=== PATIENT | female | born 1995 | race Caucasian/White ===

== ENCOUNTER → 2016-05-30 | Outpatient (CLI) | payer BC ==
[2016-05-30 18:11] LABS: ALBUMIN 3.8 GM/DL (3.2-5.2); ALBUMIN/GLOBULIN RATIO 1.31 (1.00-1.93); ALKALINE PHOSPHATASE 38 U/L (45-117); ALT/SGPT 26 U/L (12-78); ANION GAP 5 MEQ/L (8-16); AST/SGOT 13 U/L (15-37); BLOOD UREA NITROGEN 16 MG/DL (7-18); CALCIUM LEVEL 8.4 MG/DL (8.5-10.1); CARBON DIOXIDE LEVEL 27 MEQ/L (21-32); CHLORIDE LEVEL 109 MEQ/L (98-107); CREATININE FOR GFR 0.71 MG/DL (0.55-1.02); GLOMERULAR FILTRATION RATE > 60.0 (>60); GLUCOSE, FASTING 83 MG/DL (70-105); POTASSIUM SERUM 4.2 MEQ/L (3.5-5.1); SODIUM LEVEL 141 MEQ/L (136-145); TOTAL PROTEIN 6.7 GM/DL (6.4-8.2)
[2016-05-30 19:40] LABS: MEAN CORPUSCULAR HEMOGLOBIN 33.9 pg (27.0-33.0); MEAN CORPUSCULAR HGB CONC 34.1 g/dl (32.0-36.5); MEAN CORPUSCULAR VOLUME 99.4 fl (80.0-96.0); WHITE BLOOD COUNT 5.9 K/mm3 (4.0-10.0)
== END ==
LOC: M WUC 11:26
PROVIDERS: ATTEND Internal Medicine Gastroenterology
DX: R10.84 Generalized abdominal pain (principal); R19.4 Change in bowel habit

== ENCOUNTER → 2016-06-03 | Outpatient (REF) | payer BC | LOC: M LAB REF 09:47 | PROVIDERS: ATTEND Internal Medicine Gastroenterology | DX: R10.84 Generalized abdominal pain (principal); R19.4 Change in bowel habit ==

== ENCOUNTER → 2016-07-05 | Outpatient (CLI) | payer OTHER ==
--- NOTE | 2016-07-05 15:09 | REP ---
NUCLEAR GASTRIC EMPTYING SCAN: Following the oral administration of 0.985 millicuries technetium 99m sulfur colloid in two scrambled eggs in 6 ounces or water multiple images of the upper abdomen are performed in the anterior and posterior projections for 90 minutes. The gastric activity is measured and the gastric emptying time is calculated. At the end of 90 minutes, 24% of the ingested activity has emptied from the stomach. This yields a t-1/2 of 209 minutes. A normal t-1/2 is 90 minutes. Therefore, there is delayed gastric emptying. IMPRESSION: Delayed gastric emptying. Signed by Rick Appiah MD 07/05/2016 05:27 P
== END ==
LOC: M RAD 09:32
PROVIDERS: ATTEND Internal Medicine Gastroenterology
DX: K31.84 Gastroparesis (principal); R10.84 Generalized abdominal pain; R11.0 Nausea

== ENCOUNTER 2017-02-23 00:55 | Inpatient (IN) | payer OTHER ==
[~2017-02-23] VITALS: Ht 165.1 cm; Wt 64.5 kg
[2017-02-23] MEDS ORDERED: BUSP15TA47 PO (01:35)
[2017-02-23] MEDS ORDERED: HUMI40KI IM (01:35)
[2017-02-23] MEDS ORDERED: NAPR500T3 PO (01:35)
[2017-02-23] MEDS ORDERED: CETI10TA PO (01:35)
[2017-02-23] MEDS ORDERED: METO5TAB2 PO (01:35)
[2017-02-23] MEDS ORDERED: NUVAMIS2 PV (01:35)
[2017-02-23 02:07] LABS: MEAN CORPUSCULAR HEMOGLOBIN 32.7 pg (27.0-33.0); MEAN CORPUSCULAR HGB CONC 33.2 g/dl (32.0-36.5); MEAN CORPUSCULAR VOLUME 98.5 fl (80.0-96.0); PLATELET COUNT, AUTOMATED 171 10^3/uL (150-450); RED CELL DISTRIBUTION WIDTH 11.6 % (11.5-14.5); WHITE BLOOD COUNT 5.9 10^3/uL (4.0-10.0)
[2017-02-23 02:22] LABS: CONTROL LINE HCG INT CTR LINE PRESENT
[2017-02-23 02:28] LABS: METHADONE URINE NEGATIVE (NEGATIVE)
[2017-02-23 02:40] LABS: ALBUMIN 3.9 GM/DL (3.2-5.2); ALBUMIN/GLOBULIN RATIO 1.03 (1.00-1.93); ALKALINE PHOSPHATASE 48 U/L (45-117); ALT/SGPT 23 U/L (12-78); ANION GAP 7 MEQ/L (8-16); AST/SGOT 18 U/L (7-37); BILIRUBIN,DIRECT 0.1 MG/DL (0.0-0.2); BILIRUBIN,TOTAL 0.3 MG/DL (0.2-1.0); BLOOD UREA NITROGEN 12 MG/DL (7-18); CALCIUM LEVEL 8.1 MG/DL (8.5-10.1); CARBON DIOXIDE LEVEL 29 MEQ/L (21-32); CHLORIDE LEVEL 109 MEQ/L (98-107); CREATININE FOR GFR 0.76 MG/DL (0.55-1.02); GLOMERULAR FILTRATION RATE > 60.0 (>60); GLUCOSE, FASTING 101 MG/DL (70-105); POTASSIUM SERUM 3.8 MEQ/L (3.5-5.1); SODIUM LEVEL 145 MEQ/L (136-145); TOTAL PROTEIN 7.7 GM/DL (6.4-8.2)
[2017-02-23] MEDS ORDERED: LORazepam 0.5 MG TAB PO ONE (03:30)
[2017-02-23] MEDS ORDERED: METAMUCIL (PSYLLIUM) PACKET PO SCH (09:00)
[2017-02-23] MEDS ORDERED: MOM 30ML SUSPENSION UDC PO PRN (10:00)
[2017-02-23] MEDS ORDERED: MAALOX 30 ML SUSP *UDC PO PRN (10:00)
[2017-02-23] MEDS ORDERED: PROB1TAB PO (10:45)
[2017-02-23] MEDS ORDERED: MIRA33504 PO (10:45)
[2017-02-23] MEDS ORDERED: FIBE625T22 PO (10:45)
[2017-02-23] MEDS ORDERED: RANI1TAB6 PO (10:45)
[2017-02-23] MEDS ORDERED: MEDICAL MARIJUANA (10:47)
[2017-02-23 11:21] VITALS: BP 149/85
[2017-02-23] MEDS: NICOTINE 21MG/24HR 1 EA TRANSDERMAL TD SCH (12:49)
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
[2017-02-23] MEDS: FAMOTIDINE 20 MG TAB PO SCH (16:24)
[2017-02-23] MEDS: PARoxetine 12.5 MG **CR** TAB PO SCH (16:24)
[2017-02-23] MEDS: busPIRone 5 MG TAB PO SCH (16:25)
[2017-02-23] MEDS: MIRALAX *UNIT DOSE* 17GM PACKET PO SCH (16:25)
[2017-02-23] MEDS: NAPROXEN 250 MG TAB PO SCH ×2 (16:26→20:28)
[2017-02-23 18:00] VITALS: BP 146/85
[2017-02-23] MEDS: FIBER-CON 625 MG TAB PO SCH (19:05)
[2017-02-23] MEDS: METOCLOPRAMIDE 5 MG TAB PO SCH (20:28)
[2017-02-23] MEDS ORDERED: busPIRone 5 MG TAB PO SCH (21:00)
[2017-02-23] MEDS: traZODone 50 MG TAB PO PRN (22:09)
[2017-02-23] MEDS: ACETAMINOPHEN TAB 650MG DOSE (2X325MG) PO PRN (22:10)
[2017-02-24 07:17] VITALS: BP 125/72
[2017-02-24] MEDS: FIBER-CON 625 MG TAB PO SCH (08:50)
[2017-02-24] MEDS: METOCLOPRAMIDE 5 MG TAB PO SCH ×2 (08:50→20:30)
[2017-02-24] MEDS: FAMOTIDINE 20 MG TAB PO SCH (08:50)
[2017-02-24] MEDS: NAPROXEN 250 MG TAB PO SCH ×2 (08:51→20:30)
[2017-02-24] MEDS: PARoxetine 12.5 MG **CR** TAB PO SCH (08:51)
[2017-02-24] MEDS: busPIRone 5 MG TAB PO SCH (08:51)
[2017-02-24] MEDS: MIRALAX *UNIT DOSE* 17GM PACKET PO SCH (08:51)
[2017-02-24] MEDS: NICOTINE 21MG/24HR 1 EA TRANSDERMAL TD SCH (08:52)
[2017-02-24] MEDS: PROPRANOLOL 10 MG TAB PO PRN ×2 (14:32→21:16)
--- NOTE | 2017-02-24 14:44 | MHIPNPDOC ---
[facility] Progress Note Progress Note DATE OF SERVICE: 02/24/17 HISTORY: CHIEF COMPLAINT: " I drank too much last night and I made a stupid mistake, I said the wrong thing. I said I wanted to Kill myself" HISTORY OF PRESENT ILLNESS: Patient is a 21-year-old female, who says she made a mistake by drinking too much and saying she wanted to kill herself. She said she went to her friend's house and drank way too much. She was only to have a few drinks and she doesn't remember leaving her friend's house, she remembers opening her car, but she doesn't remember anything else. She re remembers calling her boyfriend and she was already in the vehicle. she says she called to tell him she needed a ride because she knew she was drunk. He never showed up until the police called him. She says she feels disappointed about herself because she has put other people's life's in danger, and her own. She says alcohol addiction runs in her family and she doesn't want to do this because she wouldn't like to become an addict. She says she doesn't use cocaine but it showed up in her urine toxicology and she worries. about that. she says there were a lot of people at her friend's house. She says she knows this is her fault but she doesn't understand how come her friend left her go to the car being so drunk. She admits it is her fault, she's a grown up woman, but still she feels disappointed. She told her boyfriend she was going to kill him and she said she was going to kill herself. VITAL SIGNS: See below. NEW TEST RESULTS: See below CURRENT MEDICATIONS: See below. MENTAL STATUS EXAMINATION: Patient is a 21-year old female, who is alert, cooperative, nervous, dressed in hospital clothes, pleasant, good hygiene and grooming. Speech: Is Spontaneous and fluent, a little rapid. Language skills are Good Thought processes including: Intact. Thought content: Focused on being discharged soon. Abstract reasoning, and computation: Not assessed at this time Description of associations: Good. Description of abnormal or psychotic thoughts: She is not suicidal or homicidal and she denies HI and SI. She is not psychotic and she denies A/V hallucinations and thought delusions. she admits feeling anxious but less than yesterday. Judgment: Improving. Insight: Improving. Orientation: Oriented x 3. Recent and remote memory: Intact. Attention span and concentration: Good. Language: Normal. Fund of knowledge: Adequate. Mood: Anxious. Affect: Congruent with mood. DIAGNOSES: 1. Generalized anxiety disorder. 2. Substance use disorder. ASSESSMENT: Patient was calmer when she started talking to me but she became more and more anxious as we spoke about her discharge. I told her she would be leaving on Monday, we don't do discharges over the weekend. I explained we needed to schedule her appointments, make a safety plan for her. she says she feels a little bit better today, she feels less nervous. She has being receiving support from her family and her boyfriend, she has understood she has to be thankful because she didn't kill anybody and she didn't get hurt, but she understands she needs substance abuse treatment and psychiatric treatment. She says she hasn't taken her propranolol bur she feels a little bit nervous now, her hands are shaky and her heart is beginning to race, she will go and ask for it at the medication room. MANAGEMENT PLAN: I have increased her Paxil CR to 25 mgs. PO QD. TIME SPENT: 20 minutes. Vital Signs Vital Signs Date Time Temp Pulse Resp B/P (MAP) Pulse Ox O2 Delivery O2 Flow Rate FiO2 02/24/17 07:17 98.8 77 16 125/72 (89) 02/23/17 10:24 96 Room Air Current Medications Current Medications Acetaminophen (Tylenol Tab) 650 mg Q6HP PRN PO HEADACHE or DISCOMFORT Last administered on 02/23/17t 22:10; Start 02/23/17 at 10:00; Stop 03/25/17 at 09: 59 Al Hydrox/Mg Hydrox/Simethicone (Mylanta) 30 ml Q4HP PRN PO HEARTBURN/ INDIGESTION; Start 02/23/17 at 10:00; Stop 03/25/17 at 09:59 Buspirone HCl (Buspar) 15 mg BID PO ; Start 02/23/17 at 21:00; Stop 02/23/17 at 21:00; Status DC Buspirone HCl (Buspar) 15 mg DAILY PO Last administered on 02/24/17 08:51; Start 02/23/17 at 09:00; Stop 03/25/17 at 08:59 Calcium Polycarbophil (Fiber Con) 1 ea DAILY PO Last administered on 08:50; Start 02/23/17 at 09:00; Stop 03/25/17 at 08:59 Famotidine (Pepcid) 40 mg DAILY PO Last administered on 02/24/17 08:50; Start 02/23/17 at 09:00; Stop 03/25/17 at 08:59 Home Med (Med Rec Complete!) ASDIRECTED XX ; Start 02/23/17 at 11:00; Stop at 11:00; Status DC Magnesium Hydroxide (Milk Of Magnesia) 30 ml DAILYPRN PRN PO CONSTIPATION; Start 02/23/17 at 10:00; Stop 03/25/17 at 09:59 Metoclopramide HCl (Reglan) 5 mg BID PO Last administered on 02/24/17 08:50; Start 02/23/17 at 21:00; Stop 03/25/17 at 20:59 Naproxen (Naprosyn) 250 mg BID PO Last administered on 02/24/17 08:51; Start 02/23/17 at 09:00; Stop 03/25/17 at 08:59 Nicotine (Nicoderm Cq 21mg) 1 patch DAILY TD Last administered on 02/24/17 08 :52; Start 02/23/17 at 09:00; Stop 03/25/17 at 08:59 Paroxetine HCl (PAXil CR) 12.5 mg DAILY PO Last administered on 02/24/17 08: 51; Start 02/23/17 at 09:00; Stop 03/25/17 at 08:59 Polyethylene Glycol (Miralax) 1 pkt DAILY PO Last administered on 02/24/17 08 :51; Start 02/23/17 at 09:00; Stop 03/25/17 at 08:59 Propranolol HCl (Inderal) 10 mg TID PRN PO ANXIETY/AGITATION; Start 02/23/17 at 15:30; Stop 03/25/17 at 15:29 Psyllium Hydrophilic Mucilloid (Metamucil) 1 pkt DAILY PO ; Start 02/23/17 at 09:00; Stop 02/23/17 at 15:20; Status DC Trazodone HCl (Desyrel) 50 mg QHSP PRN PO INSOMNIA Last administered on t 22:09; Start 02/23/17 at 10:00; Stop 03/25/17 at 09:59 Allergies Coded Allergies: No Known Allergies (Verified , 09/16/02) LARS GARAY MD Feb 24, 2017 14:44
[2017-02-24 18:00] VITALS: BP 130/91
[2017-02-24] MEDS: traZODone 50 MG TAB PO PRN (23:16)
[2017-02-25 06:43] VITALS: BP 109/63
[2017-02-25] MEDS: MIRALAX *UNIT DOSE* 17GM PACKET PO SCH (09:16)
[2017-02-25] MEDS: METOCLOPRAMIDE 5 MG TAB PO SCH ×2 (09:16→20:36)
[2017-02-25] MEDS: FIBER-CON 625 MG TAB PO SCH (09:16)
[2017-02-25] MEDS: busPIRone 5 MG TAB PO SCH (09:17)
[2017-02-25] MEDS: FAMOTIDINE 20 MG TAB PO SCH (09:17)
[2017-02-25] MEDS: PARoxetine 25 MG CR TAB (PAXIL CR) PO SCH (09:17)
[2017-02-25] MEDS: NAPROXEN 250 MG TAB PO SCH ×2 (09:17→20:35)
[2017-02-25] MEDS: NICOTINE 21MG/24HR 1 EA TRANSDERMAL TD SCH (09:17)
--- NOTE | 2017-02-25 15:22 | MHIPNPDOC ---
[facility] Progress Note Progress Note DATE OF SERVICE: 02/25/17 HISTORY: Patient reports feeling anxious with poor sleep at night. Anxious because of all of the things she has to do once she is discharged. Denies depression, SI intent and plan. Patient has constipation, describes her IBS symptoms. Describes her joint pain issues (rheumatoid and osteoarthritis). VITAL SIGNS: See below. NEW TEST RESULTS: NA CURRENT MEDICATIONS: See below. Appearance: Behavior: polite, cooperative, related Speech: normal volume, anxious tone, slightly rapid rate Thought processes including: linear Thought content: appropriate to conversation Judgment: fair Insight: fair Orientation: Oriented x 3. Mood: Anxious. Affect: Congruent with mood. DIAGNOSES: 1. Generalized anxiety disorder. 2. Substance use disorder. ASSESSMENT: Patient does not have SI. Remains anxious. Motivated to seek outpatient care. MANAGEMENT PLAN: - Continue Paxil CR 25 mg daily - Continue buspar 15 mg daily for anxiety - Continue propranolol 10 mg TID PRN for anxiety - Increased trazodone to 100 mg qhs for sleep - Discussed with patient about the possibility of starting benzos (klonopin) outpatient, emphasized that the decision will be between her and her outpatient psychiatrist - Continue medications for her GI issues. TIME SPENT: 20 minutes. Vital Signs Vital Signs Date Time Temp Pulse Resp B/P (MAP) Pulse Ox O2 Delivery O2 Flow Rate FiO2 02/25/17 06:43 97.7 83 12 109/63 (78) 02/23/17 10:24 96 Room Air Current Medications Current Medications Acetaminophen (Tylenol Tab) 650 mg Q6HP PRN PO HEADACHE or DISCOMFORT Last administered on 02/23/17 22:10; Start 02/23/17 at 10:00; Stop 03/25/17 at 09: 59 Al Hydrox/Mg Hydrox/Simethicone (Mylanta) 30 ml Q4HP PRN PO HEARTBURN/ INDIGESTION; Start 02/23/17 at 10:00; Stop 03/25/17 at 09:59 Buspirone HCl (Buspar) 15 mg BID PO ; Start 02/23/17 at 21:00; Stop 02/23/17 at 21:00; Status DC Buspirone HCl (Buspar) 15 mg DAILY PO Last administered on 02/25/17 09:17; Start 02/23/17 at 09:00; Stop 03/25/17 at 08:59 Calcium Polycarbophil (Fiber Con) 1 ea DAILY PO Last administered on 09:16; Start 02/23/17 at 09:00; Stop 03/25/17 at 08:59 Famotidine (Pepcid) 40 mg DAILY PO Last administered on 02/25/17 09:17; Start 02/23/17 at 09:00; Stop 03/25/17 at 08:59 Home Med (Med Rec Complete!) ASDIRECTED XX ; Start 02/23/17 at 11:00; Stop at 11:00; Status DC Magnesium Hydroxide (Milk Of Magnesia) 30 ml DAILYPRN PRN PO CONSTIPATION Last administered on 02/25/17 12:12; Start 02/23/17 at 10:00; Stop 03/25/17 at 09: 59 Metoclopramide HCl (Reglan) 5 mg BID PO Last administered on 02/25/17 09:16; Start 02/23/17 at 21:00; Stop 03/25/17 at 20:59 Naproxen (Naprosyn) 250 mg BID PO Last administered on 02/25/17 09:17; Start 02/23/17 at 09:00; Stop 03/25/17 at 08:59 Nicotine (Nicoderm Cq 21mg) 1 patch DAILY TD Last administered on 02/25/17 09 :17; Start 02/23/17 at 09:00; Stop 03/25/17 at 08:59 Paroxetine HCl (PAXil CR) 12.5 mg DAILY PO Last administered on 02/24/17 08: 51; Start 02/23/17 at 09:00; Stop 02/24/17 at 14:27; Status DC Paroxetine HCl (PAXil CR) 25 mg DAILY PO Last administered on 02/25/17 09:17 ; Start 02/25/17 at 09:00; Stop 03/27/17 at 08:59 Polyethylene Glycol (Miralax) 1 pkt DAILY PO Last administered on 02/25/17 09 :16; Start 02/23/17 at 09:00; Stop 03/25/17 at 08:59 Propranolol HCl (Inderal) 10 mg TID PRN PO ANXIETY/AGITATION Last administered on 02/24/17 21:16; Start 02/23/17 at 15:30; Stop 03/25/17 at 15:29 Psyllium Hydrophilic Mucilloid (Metamucil) 1 pkt DAILY PO ; Start 02/23/17 at 09:00; Stop 02/23/17 at 15:20; Status DC Trazodone HCl (Desyrel) 50 mg QHSP PRN PO INSOMNIA Last administered on t 23:16; Start 02/23/17 at 10:00; Stop 03/25/17 at 09:59 Allergies Coded Allergies: No Known Allergies (Verified , 09/16/02) HARRIET FLORES MD Feb 25, 2017 15:22
[2017-02-25 18:47] VITALS: BP 110/64
[2017-02-25] MEDS: PROPRANOLOL 10 MG TAB PO PRN (19:09)
[2017-02-26] MEDS: traZODone 50 MG TAB PO PRN ×2 (00:01→22:13)
[2017-02-26] MEDS: ACETAMINOPHEN TAB 650MG DOSE (2X325MG) PO PRN ×2 (00:02→08:47)
[2017-02-26 06:44] VITALS: BP 100/56
[2017-02-26] MEDS: METOCLOPRAMIDE 5 MG TAB PO SCH ×2 (08:44→21:35)
[2017-02-26] MEDS: FIBER-CON 625 MG TAB PO SCH (08:44)
[2017-02-26] MEDS: MIRALAX *UNIT DOSE* 17GM PACKET PO SCH (08:44)
[2017-02-26] MEDS: PARoxetine 25 MG CR TAB (PAXIL CR) PO SCH (08:45)
[2017-02-26] MEDS: FAMOTIDINE 20 MG TAB PO SCH (08:45)
[2017-02-26] MEDS: busPIRone 5 MG TAB PO SCH (08:45)
[2017-02-26] MEDS: NICOTINE 21MG/24HR 1 EA TRANSDERMAL TD SCH (08:46)
[2017-02-26] MEDS: NAPROXEN 250 MG TAB PO SCH ×2 (08:47→21:36)
[2017-02-26 13:24] VITALS: BP 140/88
[2017-02-26] MEDS: PROPRANOLOL 10 MG TAB PO PRN (13:24)
[2017-02-26 18:20] VITALS: BP 129/81
--- NOTE | 2017-02-26 22:11 | MHIPN ---
DATE: 02/26/2017 VITAL SIGNS: Temperature 96.9, pulse 60, respirations 12, blood pressure 100/56. CURRENT MEDICATIONS: - Paxil CR 25 mg every morning - trazodone 100 mg at bedtime as needed - BuSpar 15 mg daily PSYCHIATRIC HISTORY: The patient has a history of generalized anxiety disorder (JUNE) and substance use disorder. She is being treated by Dr. Otoole. She is currently on Paxil, BuSpar, and trazodone. Dr. Otoole is planning on weaning her off the BuSpar apparently. She is looking forward to discharge, possibly tomorrow. She feels excited about the future. She is future oriented. She plans on staying sober and avoiding alcohol. She is willing to go to outpatient treatment. Her appetite is good. She sleeps well at night. She has no other complaints. MENTAL STATUS EXAMINATION: The patient is alert, oriented and cooperative. Speech is somewhat rapid but otherwise is appropriate. She has good eye contact. No signs of psychosis. Insight and judgment are fair. No current signs of dangerousness. The patient is not psychotic. Grooming and hygiene are quite good. DIAGNOSES: 1. Generalized anxiety disorder (JUNE). 2. Substance use disorder. PLAN: Continue current psychotropics.
[2017-02-27 06:55] VITALS: BP 107/57
[2017-02-27] MEDS ORDERED: PARoxetine 20 MG TAB PO ONE (08:30)
[2017-02-27] MEDS: FAMOTIDINE 20 MG TAB PO SCH (08:35)
[2017-02-27] MEDS: FIBER-CON 625 MG TAB PO SCH (08:35)
[2017-02-27] MEDS: METOCLOPRAMIDE 5 MG TAB PO SCH (08:35)
[2017-02-27] MEDS: MIRALAX *UNIT DOSE* 17GM PACKET PO SCH (08:35)
[2017-02-27] MEDS: busPIRone 5 MG TAB PO SCH (08:36)
[2017-02-27] MEDS: NAPROXEN 250 MG TAB PO SCH (08:36)
[2017-02-27] MEDS: NICOTINE 21MG/24HR 1 EA TRANSDERMAL TD SCH (08:36)
[2017-02-27] MEDS ORDERED: PARO20TA3 PO (10:38)
--- NOTE | 2017-02-27 16:43 | HPE ---
DATE OF ADMISSION: 02/23/2017 HISTORY OF PRESENT ILLNESS: Please refer to psychiatric history and evaluation for further details on this admission. This examination and history is intended for medical issues, which may need treatment, followup or consultation on this 21-year-old female. ALLERGIES: No known allergies. PRIMARY CARE PROVIDER: She goes to the [facility]. SOCIAL HISTORY: She is single. She lives with her significant other of 6 years. EtOH two times a month. Smokes one pack of cigarettes per day. Recreational drug use is none. PAST MEDICAL HISTORY: Rheumatoid arthritis, osteoarthritis, ankylosing spondylitis, she follows with [facility], gastric emptying problem. PAST SURGICAL HISTORY: Reimplantation of left ureter at age 4. HOME MEDICATIONS: - medical marijuana - buspirone 15 mg by mouth twice a day - calcium - polycarbophil 625 mg by mouth daily - Reglan 5 mg by mouth twice a day - Naproxen 500 mg by mouth twice a day - MiraLAX 17 grams by mouth daily - ranitidine 150 mg by mouth twice a day - Humira 40 mg intramuscularly as directed - NuvaRing 0.12/0.015 mg per 24 hours as directed - probiotic one by mouth daily LABORATORY STUDIES: WBC was 5.9, hemoglobin 12.9, hematocrit 38.8, platelets 171. Sodium 145, potassium 3.8, chloride 109, CO2 of 29, BUN 12, creatinine 0.76. Urine was positive for cocaine and cannabinoids. EtOH was 0.224 despite the fact that the patient denied using alcohol or cocaine. REVIEW OF SYSTEMS: Ten systems review was done and other than her arthritic pain she had no complaints. PHYSICAL EXAMINATION: GENERAL: 21-year-old cooperative female in no acute distress. Height 65 inches, weight 64.54 kg, Body Mass Index (BMI) 23.7, blood pressure 100/56, pulse 60, respirations 16, temperature 96.9. The patient is alert and oriented times three. HEENT: Pupils are equal and reactive to light. Extraocular muscles intact. Sclerae clear. Conjunctivae normal. No facial asymmetry. Pharynx, gums and tongue pink and moist. Tongue is midline. NECK: Supple without lymphadenopathy, thyromegaly or goiter. CHEST: Clear to auscultation without wheeze or retraction. HEART: Regular. ABDOMEN: Benign. Bowel sounds positive. GENITOURINARY/RECTAL: Not done. EXTREMITIES: Equal strength. Full range of motion. No cyanosis, clubbing or edema. Peripheral pulses equal and palpable bilaterally. SKIN: Warm and dry. IMPRESSION/PLAN: 1. Psychiatric plan per psychiatry. 2. Rheumatoid arthritis, osteoarthritis, ankylosing spondylitis. Continue to followup with [facility]. 3. Polysubstance abuse. Monitor for withdrawal. 4. No other acute medical issues.
[2017-02-28] MEDS ORDERED: PARoxetine 20 MG TAB PO SCH (09:00)
--- NOTE | 2017-02-28 12:56 | MHDS ---
DATE OF ADMISSION: 02/23/2017 DATE OF DISCHARGE: 02/27/2017 VITAL SIGNS: Temperature 99.6. Pulse 78. Respirations 16. Blood pressure 107/57. LABS: CBC and differential within normal limits except for low RBC at 3.94, MCV was elevated at 98.5. Chem survey was normal except for chloride 109 and calcium low at 8.1. Toxicology showed positive urine for cocaine metabolites and cannabinoids. Ethyl alcohol level was elevated at 0.224. DISCHARGE DIAGNOSES: 1. Generalized anxiety disorder. 2. Depressive disorder unspecified. 3. Alcohol use disorder. 4. Cannabis use disorder. 5. Cocaine use disorder. DISCHARGE MEDICATIONS: - Paxil 20 mg every morning - trazodone 100 mg at bedtime as needed - BuSpar discontinued CHIEF COMPLAINT: Patient was seen at the time of admission by Dr. Otoole. Her chief complaint was that she drank too much and became suicidal. HISTORY OF PRESENT ILLNESS: This is a 21-year-old female who drank to excess, becoming intoxicated and voicing suicidal ideation. The patient had a blackout. She consumed cannabis and cocaine. She has no recollection. She was picked up on an aggravated DUI and has legal charges pending. The patient has a history of anxiety and a diagnosis of generalized anxiety disorder per Dr. Otoole. PROGRESS ON THE UNIT: The patient was placed on Paxil by Dr. Otoole with good effect. She was placed on Paxil CR. She tolerated it well. She denied any side effects. Mood improved markedly. Anxiety improved. She did not show any signs of alcohol withdrawal. The patient was agreeable for outpatient mental health services and chemical dependency services. 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 She plans on cutting back her school schedule for next semester. Her boyfriend helped her get a legal veterans service representative to help her with her DUI charge. She has a court date today after discharge. The patient appeared optimistic about the future and was future oriented. She showed no signs of dangerousness. Prior to discharge, she was active on the unit and was behaviorally appropriate. MENTAL STATUS EXAMINATION: At the time of discharge, mood and affect appeared quite good. Anxiety was minimal. She was not suicidal and not homicidal. No signs of psychosis. Grooming and hygiene were good. No signs of organicity. ASSESSMENT: Patient appears to have reached maximal hospital benefit. PLAN: Discharge to the community.
== END 2017-02-27 12:25 | disposition home or self-care (01) | DRG 756 ==
LOC: M ED 00:55 → M ED INP 09:47 → M PSY 10:53
PROVIDERS: ADMIT Psychiatry & Neurology Psychiatry; ATTEND Psychiatry & Neurology Psychiatry
DX: F41.1 Generalized anxiety disorder (principal); F32.9 Major depressive disorder, single episode, unspecified; F10.10 Alcohol abuse, uncomplicated; F12.90 Cannabis use, unspecified, uncomplicated; F14.90 Cocaine use, unspecified, uncomplicated; F17.210 Nicotine dependence, cigarettes, uncomplicated; M06.9 Rheumatoid arthritis, unspecified; Z79.899 Other long term (current) drug therapy

== ENCOUNTER → 2018-01-26 | Outpatient (REF) | payer OTHER ==
[2018-01-26 17:27] LABS: CHLAMYDIA DNA AMPLIFICATION NEGATIVE (NEGATIVE); GC DNA AMPLIFICATION NEGATIVE (NEGATIVE)
== END ==
LOC: M SFHCWAGY 11:57
DX: Z12.4 Encounter for screening for malignant neoplasm of cervix (principal)

== ENCOUNTER → 2018-04-13 | Outpatient (CLI) | payer BC ==
[~2018-04-13] MED LIST: BUSP15TA47 PO; CETI10TA PO; FIBE625T22 PO; HUMI40KI IM; MEDICAL MARIJUANA; METO5TAB2 PO; MIRA33504 PO; NAPR-885 PO; NUVAMIS2 PV; PARO20TA3 PO; PROB1TAB PO; RANI1TAB6 PO
[2018-04-13 15:41] LABS: ALT/SGPT 64 U/L (12-78); C REACTIVE PROTEIN QUANTITATIV < 0.30 MG/DL (0.00-0.30); CREATININE FOR GFR 0.81 MG/DL (0.55-1.30); GLOMERULAR FILTRATION RATE > 60.0 (>60)
[2018-04-13 15:54] LABS: BASO % 0.5 % (0.0-1.0); EOS # 0.2 10^3/uL (0.0-0.50); EOS % 2.5 % (0.0-3.0); HEMATOCRIT 40.8 % (36.0-47.0); HEMOGLOBIN 13.7 g/dl (12.0-15.5); LYMPH % 38.3 % (24.0-44.0); MEAN CORPUSCULAR HEMOGLOBIN 33.1 pg (27.0-33.0); MEAN CORPUSCULAR HGB CONC 33.6 g/dl (32.0-36.5); MEAN CORPUSCULAR VOLUME 98.6 fl (80.0-96.0); MONO # 0.5 10^3/uL (0.0-0.8); MONO % 6.8 % (0.0-5.0); NEUTROPHILS % 51.6 % (36.0-66.0); PLATELET COUNT, AUTOMATED 214 10^3/uL (150-450); RED BLOOD COUNT 4.14 10^6/uL (4.00-5.40); WHITE BLOOD COUNT 7.8 10^3/uL (4.0-10.0)
[2018-04-13 16:26] LABS: ERYTHROCYTE SEDIMENTATION RATE 6 mm/hr (0-20)
== END ==
LOC: M WUC 11:43
PROVIDERS: ATTEND Nurse Practitioner
DX: M45.0 Ankylosing spondylitis of multiple sites in spine (principal); Z79.899 Other long term (current) drug therapy

== ENCOUNTER → 2018-04-26 | Outpatient (REF) | payer BC | LOC: M SFHCWAGY 12:06 | PROVIDERS: ATTEND Nurse Practitioner Women's Health | DX: N89.8 Other specified noninflammatory disorders of vagina (principal) ==

== ENCOUNTER 2018-08-30 14:23 | Emergency (ER) | payer BC ==
[~2018-08-30] VITALS: Ht 165.1 cm; Wt 77.4 kg
[2018-08-30] MEDS ORDERED: AZUR1TAB (14:33)
[2018-08-30] MEDS ORDERED: COSE1INJ3 (14:33)
[2018-08-30] MEDS ORDERED: GLYC1TAB18 (14:33)
[2018-08-30] MEDS ORDERED: KETOROLAC 30 MG/ML VIAL (J1885) IM ONE (15:15)
[2018-08-30] MEDS ORDERED: KETO10TAB PO (15:44)
[2018-08-30 15:59] VITALS: BP 156/97
== END 2018-08-30 15:58 | disposition home or self-care (01) ==
LOC: M ED 14:23
DX: S29.011A Strain of muscle and tendon of front wall of thorax, initial encounter (principal); S29.012A Strain of muscle and tendon of back wall of thorax, initial encounter; S46.911A Strain of unspecified muscle, fascia and tendon at shoulder and upper arm level, right arm, initial encounter; X50.3XXA Overexertion from repetitive movements, initial encounter; Y92.099 Unspecified place in other non-institutional residence as the place of occurrence of the external cause; Y93.89 Activity, other specified; Y99.9 Unspecified external cause status; M06.9 Rheumatoid arthritis, unspecified; M45.9 Ankylosing spondylitis of unspecified sites in spine; Z87.891 Personal history of nicotine dependence; Z79.899 Other long term (current) drug therapy
CPT/HCPCS: 96372; 99283; J1885

== ENCOUNTER → 2018-10-30 | Outpatient (REF) | payer BC ==
[~2018-10-30] MED LIST changes: +AZUR1TAB; +COSE1INJ3; +GLYC1TAB18; +KETO10TAB PO
[2018-10-30 21:45] LABS: APPEARANCE, URINE CLOUDY (CLEAR); BACTERIA, URINE AUTO 1+ (NEGATIVE); BILIRUBIN, URINE AUTO NEGATIVE (NEGATIVE); BLOOD, URINE BLOOD 2+ (NEGATIVE); COLOR, URINE YELLOW (YELLOW); GLUCOSE, URINE (UA) AUTO NEGATIVE (NEGATIVE); KETONE, URINE AUTO TRACE mg/dL (NEGATIVE); LEUKOCYTE ESTERASE, URINE AUTO 1+ (NEGATIVE); MUCUS, URINE SMALL (NEGATIVE); NITRITE, URINE AUTO POSITIVE (NEGATIVE); PROTEIN, URINE AUTO 2+ mg/dL (NEGATIVE); RBC, URINE AUTO 56 /HPF (0-3); SPECIFIC GRAVITY URINE AUTO 1.025 (1.002-1.035); SQUAMOUS EPITHELIAL CELL UR AU 5 /HPF (0-6); TRANSITIONAL EPITHELIAL AUTO 5 /HPF; UROBILINOGEN, URINE AUTO 0.2 mg/dL (0.0-2.0); WBC, URINE AUTO TNTC /HPF (0-3)
== END ==
LOC: M LAB REF 14:35
PROVIDERS: ATTEND Physician Assistant Medical
DX: N39.0 Urinary tract infection, site not specified (principal)

== ENCOUNTER → 2018-11-19 | Outpatient (REF) | payer BC ==
[~2018-11-19] MED LIST changes: +RANI-356 PO; -RANI1TAB6 PO
[2018-11-19 14:06] LABS: APPEARANCE, URINE CLOUDY (CLEAR); BACTERIA, URINE AUTO 1+ (NEGATIVE); BILIRUBIN, URINE AUTO NEGATIVE (NEGATIVE); BLOOD, URINE BLOOD 3+ (NEGATIVE); COLOR, URINE YELLOW (YELLOW); GLUCOSE, URINE (UA) AUTO NEGATIVE (NEGATIVE); KETONE, URINE AUTO NEGATIVE (NEGATIVE); LEUKOCYTE ESTERASE, URINE AUTO 2+ (NEGATIVE); MUCUS, URINE SMALL (NEGATIVE); NITRITE, URINE AUTO NEGATIVE (NEGATIVE); PROTEIN, URINE AUTO 2+ mg/dL (NEGATIVE); RBC, URINE AUTO TNTC /HPF (0-3); SPECIFIC GRAVITY URINE AUTO 1.019 (1.002-1.035); SQUAMOUS EPITHELIAL CELL UR AU 17 /HPF (0-6); TRANSITIONAL EPITHELIAL AUTO 3 /HPF; UROBILINOGEN, URINE AUTO 0.2 mg/dL (0.0-2.0); WBC, URINE AUTO TNTC /HPF (0-3)
== END ==
LOC: M LAB REF 12:27
PROVIDERS: ATTEND Physician Assistant Medical
DX: N39.0 Urinary tract infection, site not specified (principal)

== ENCOUNTER → 2019-01-26 | Outpatient (REF) | payer BC ==
[2019-01-26 13:18] LABS: AMORPHOUS SEDIMENT SMALL (NEGATIVE); APPEARANCE, URINE CLOUDY (CLEAR); BACTERIA, URINE AUTO 2+ (NEGATIVE); BILIRUBIN, URINE AUTO NEGATIVE (NEGATIVE); BLOOD, URINE BLOOD 1+ (NEGATIVE); COLOR, URINE YELLOW (YELLOW); GLUCOSE, URINE (UA) AUTO NEGATIVE (NEGATIVE); KETONE, URINE AUTO NEGATIVE (NEGATIVE); LEUKOCYTE ESTERASE, URINE AUTO 2+ (NEGATIVE); MUCUS, URINE SMALL (NEGATIVE); NITRITE, URINE AUTO NEGATIVE (NEGATIVE); PROTEIN, URINE AUTO 2+ mg/dL (NEGATIVE); RBC, URINE AUTO 21 /HPF (0-3); SPECIFIC GRAVITY URINE AUTO 1.033 (1.002-1.035); SQUAMOUS EPITHELIAL CELL UR AU 10 /HPF (0-6); UROBILINOGEN, URINE AUTO 0.2 mg/dL (0.0-2.0); WBC, URINE AUTO 167 /HPF (0-3)
== END ==
LOC: M LAB REF 12:52
PROVIDERS: ATTEND Nurse Practitioner Family
DX: N39.0 Urinary tract infection, site not specified (principal)

== ENCOUNTER → 2019-02-05 | Outpatient (CLI) | payer BC ==
--- NOTE | 2019-02-05 14:14 | REP ---
ULTRASOUND RIGHT BREAST: Real-time sonographic evaluation of the right breast performed for a palpable lump right breast between 8-o'clock position and 10-o'clock position. This has been present for approximately 2 weeks. Real-time sonographic evaluation of lateral right breast demonstrates dense fibroglandular tissue. No discrete cystic or solid mass is seen. IMPRESSION: ACR 2 benign. Dense breast parenchymal between 8-o'clock position and 10-o'clock position right breast at the site of the reported palpable abnormality. No sonographic evidence of cystic or solid mass. A negative ultrasound should not deter biopsy if a clinically suspicious palpable mass is present. Clinical correlation and followup is recommended. Electronically Signed by Rick Appiah MD 02/05/2019 02:34 P
== END ==
LOC: M RAD 12:38
PROVIDERS: ATTEND Nurse Practitioner Women's Health
DX: N63.10 Unspecified lump in the right breast, unspecified quadrant (principal)

== ENCOUNTER → 2019-05-21 | Outpatient (REF) | payer BC ==
[~2019-05-21] MED LIST changes: -RANI-356 PO; +RANI-397 PO
== END ==
LOC: M LAB REF 12:27
PROVIDERS: ATTEND Physician Assistant
DX: Z20.2 Contact with and (suspected) exposure to infections with a predominantly sexual mode of transmission (principal)

== ENCOUNTER → 2020-01-08 | Outpatient (REF) | payer BC ==
[~2020-01-08] MED LIST changes: +BACT800T5 PO; +IBUP-1114 PO
[2020-01-08 22:03] LABS: BASO % 0.3 % (0.0-1.0); EOS # 0.3 10^3/uL (0.0-0.5); EOS % 2.8 % (0.0-3.0); HEMATOCRIT 38.7 % (36.0-47.0); HEMOGLOBIN 12.8 g/dl (12.0-15.5); LYMPH # 1.9 10^3/uL (1.5-5.0); LYMPH % 21.6 % (24.0-44.0); MEAN CORPUSCULAR HEMOGLOBIN 31.7 pg (27.0-33.0); MEAN CORPUSCULAR HGB CONC 33.1 g/dl (32.0-36.5); MEAN CORPUSCULAR VOLUME 95.8 fl (80.0-96.0); MONO # 0.7 10^3/uL (0.0-0.8); MONO % 8.1 % (0.0-5.0); NEUTROPHILS % 66.9 % (36.0-66.0); PLATELET COUNT, AUTOMATED 235 10^3/uL (150-450); RED BLOOD COUNT 4.04 10^6/uL (4.00-5.40)
== END ==
LOC: M LAB REF 21:43
PROVIDERS: ATTEND Physician Assistant
DX: R23.3 Spontaneous ecchymoses (principal)

== ENCOUNTER 2020-01-14 15:20 | Emergency (ER) | payer BC, SELFPAY ==
[~2020-01-14] VITALS: Ht 165.1 cm; Wt 64.3 kg
[~2020-01-14 15:20] MED LIST changes: -BACT800T5 PO; -IBUP-1114 PO
[2020-01-14 15:21] VITALS: BP 129/76
[2020-01-14] MEDS ORDERED: IBUP-1114 PO (15:44)
[2020-01-14] MEDS ORDERED: BACT800T5 PO (16:12)
== END 2020-01-14 16:29 | disposition home or self-care (01) ==
LOC: M ED 15:20
DX: L02.212 Cutaneous abscess of back [any part, except buttock and flank] (principal); L02.211 Cutaneous abscess of abdominal wall; M19.90 Unspecified osteoarthritis, unspecified site; Z79.899 Other long term (current) drug therapy; F17.210 Nicotine dependence, cigarettes, uncomplicated

== ENCOUNTER → 2020-02-14 | Outpatient (REF) | payer SELFPAY ==
[~2020-02-14] MED LIST changes: +BACT800T5 PO; +IBUP-1114 PO
== END ==
LOC: M SFHCWAGY 16:48
PROVIDERS: ATTEND Nurse Practitioner Family
DX: Z11.3 Encounter for screening for infections with a predominantly sexual mode of transmission (principal)

== ENCOUNTER → 2020-06-05 | Outpatient (REF) | payer BC ==
[2020-06-05 21:13] LABS: APPEARANCE, URINE HAZY (CLEAR); BACTERIA, URINE AUTO NEGATIVE (NEGATIVE); BILIRUBIN, URINE AUTO NEGATIVE (NEGATIVE); BLOOD, URINE BLOOD NEGATIVE (NEGATIVE); COLOR, URINE YELLOW (YELLOW); GLUCOSE, URINE (UA) AUTO NEGATIVE (NEGATIVE); KETONE, URINE AUTO NEGATIVE (NEGATIVE); LEUKOCYTE ESTERASE, URINE AUTO TRACE (NEGATIVE); NITRITE, URINE AUTO NEGATIVE (NEGATIVE); PROTEIN, URINE AUTO NEGATIVE (NEGATIVE); RBC, URINE AUTO 6 /HPF (0-3); SPECIFIC GRAVITY URINE AUTO 1.021 (1.002-1.035); SQUAMOUS EPITHELIAL CELL UR AU 2 /HPF (0-6); UROBILINOGEN, URINE AUTO 0.2 mg/dL (0.0-2.0); WBC, URINE AUTO 25 /HPF (0-3)
== END ==
LOC: M LAB 21:02
PROVIDERS: ATTEND Physician Assistant
DX: R30.0 Dysuria (principal)

== ENCOUNTER 2021-01-08 13:34 | Inpatient (IN) | payer BC ==
[~2021-01-08] VITALS: Ht 160 cm; Wt 80.3 kg
[2021-01-08] VITALS (22 sets, daily range): BP systolic 138–178; BP diastolic 72–111
--- OUTSIDE RECORDS SUMMARY | 2021-01-08 13:54 | CCD | Continuity of Care Document ---
Author Author Bessy GENAO M.D Organization Unknown Address [address] [place] [id number] Phone [phone] Problems Description No Information Available Social History Type Date Description Comments Sex Unknown ETOH Use Denies alcohol use Tobacco Use Start: Unknown Light tobacco smoker (10 or fewe r cigarettes/day) Recreational Drug Use Current Drug User Exercise Type/Frequency Exercises regularly Tattoo/Piercing Tattoo Tattoo/Piercing Pierced ears Tattoo/Piercing Pierced navel Tattoo/Piercing Pierced tongue ROBBY: 01/23/2021 Estimated Date of Delivery Based on Final ROBBY Allergies, Adverse Reactions, Alerts Active Allergies Criticality Reaction | Severity Comments Date NKDA Unable to assess criticality 05/28/2020 NKFA Unable to assess criticality 07/29/2020 Cats Unable to assess criticality 07/29/2020 Medications Active Medications SIG Qnty Indications Ordering Provide r Date Aspirin 81 Low Dose 81mg Chewtabs 1 tab by mouth every day as directed 30units Bassam Nwogu, DO 0 09/29/2020 Vitamin D3 Maximum Strength 125mcg (5000 Ut) Capsules 1 tab by mouth every day as directed 30caps Quyen edward Nwogu, DO 08/19/2020 Vitamin D3 Maximum Strength 125mcg (5000 Ut) Capsules 1 tab by mouth every day as directed 30caps Quyen edward Nwogu, DO 06/26/2020 Tablets 1 by beka th every day Unknown Probiotic Capsules once a da y Unknown Tylenol 325mg Capsules 2 tabs by mouth every 4 hours as needed Unknown History Medications Macrobid 100mg Capsules 1 tab by mouth twice a day as directed for 10 days 20caps Bassam cortes DO 08/19/2020 - 09/29/2020 Immunizations Description No Information Available Vital Signs Date Vital Result Comment 12/09/2020 2:05pm BP Systolic 146 mmHg BP Diastolic 100 mmHg Heart Rate 113 /min Body Temperature 98.8 F Weight 177.00 lb Weight 80.287 kg Height 65 inches 5'5" BMI (Body Mass Index) 29.5 kg/m2 BSA (Body Surface Area) 1.88 m2 09/29/2020 2:46pm BP Systolic 138 mmHg BP Diastolic 76 mmHg Heart Rate 78 /min Body Temperature 96.9 F Respiratory Rate 16 /min O2 % BldC Oximetry 98 % Weight 172.25 lb Weight 78.133 kg Height 65 inches 5'5" BMI (Body Mass Index) 28.7 kg/m2 BSA (Body Surface Area) 1.86 m2 Results Test Acquired Date Facility Test Result H/L Range Note Xray 09/29/2020 [facility] [address] [place] [address] [phone] OB Follow-Up <pending> Chlamydia GC/Am 06/26/2020 [facility] Source: Genital 1 Chlamydia trachomatis,Lala Negative Negative Neisseria gonorrhoeae,Lala Negative Negative Laboratory test finding 06/26/2020 In Office Inhouse Urine Test POSITIVE Negative 1 {SOURCE: Genital Procedures Date Code Description Status 06/26/2020 [id number] Antepartum F/U visit Completed Medical Devices Description No Information Available Encounters Description No Information Available Assessments Date Code Description Provider 06/26/2020 Z34.03 Encounter for superv ision of normal first , third trimester WWW Intake / Nurse Schedule Plan of Treatment Future Appointment(s):* 12/17/2020 1:00 pm - Bassam Diehl DO at [facility] * 12/14/2020 2:45 pm - Bassam Diehl DO at [facility] Functional Status Description No Information Available Mental Status Description No Information Available Referrals Refer to Reason for Referral Status Appt Date [facility] Rheumatology RHEUMATOID ARTHRITIS, PSORIATIC ARTHRITI S CURRENTLY Created [address] [facility] [address] [place], [place] [id number] [phone] [facility] CURRENTLY ~15WKS GESTATION W ITH RA, GASTROPARESIS, PSORIATIC ARTHRITIS, AND DRUG ADDICTION UNABLE TO OBTAIN RHEUMATOLOGY RECORDS Sent 09/08/[address] [place] [address] [phone]
--- OUTSIDE RECORDS SUMMARY | 2021-01-08 13:55 | CCD ---
Author Author [facility] Organization [facility] Address Unknown Phone Unavailable Care Team Providers Care Brick Cleaner Name Role Phone Nwogu, U Bassam DO Unavailable Unavailable Nwogu, U Bassam DO Unavailable Unavailable Nwogu, U Bassam DO Unavailable Unavailable Nwogu, U Bassam DO Unavailable Unavailable Nwogu, U Bassam DO Unavailable Unavailable Nwogu, U Bassam DO Unavailable Unavailable Nwogu, U Bassam DO Unavailable Unavailable Nwogu, U Bassam DO Unavailable Unavailable Nwogu, U Bassam DO Unavailable Unavailable Nwogu, U Bassam DO Unavailable Unavailable Nwogu, U Bassam DO Unavailable Unavailable Nwogu, U Bassam DO Unavailable Unavailable Nwogu, U Bassam DO Unavailable Unavailable Nwogu, U Bassam DO Unavailable Unavailable Nwogu, U Bassam DO Unavailable Unavailable Nwogu, U Bassam DO Unavailable Unavailable Nwogu, U Bassam DO Unavailable Unavailable Nwogu, U Bassam DO Unavailable Unavailable Nwogu, U Bassam DO Unavailable Unavailable Nwogu, U Bassam DO Unavailable Unavailable Chris KOO MD Unavailable Unavailable Chris KOO MD Unavailable Unavailable Chris KOO MD Unavailable Unavailable Chris KOO MD Unavailable Unavailable Chris KOO MD Unavailable Unavailable Chris KOO MD Unavailable Unavailable Chris KOO MD Unavailable Unavailable Chris KOO MD Unavailable Unavailable Chris KOO MD Unavailable Unavailable Chris KOO MD Unavailable Unavailable Chris KOO MD Unavailable Unavailable Chris KOO MD Unavailable Unavailable Chris KOO MD Unavailable Unavailable Chris KOO MD Unavailable Unavailable Chris KOO MD Unavailable Unavailable Chris KOO MD Unavailable Unavailable Chris KOO MD Unavailable Unavailable Chris KOO MD Unavailable Unavailable Chris KOO MD Unavailable Unavailable Chris KOO MD Unavailable Unavailable Chris KOO MD Unavailable Unavailable Chris KOO MD Unavailable Unavailable Chris KOO MD Unavailable Unavailable Chris KOO MD Unavailable Unavailable Chris KOO MD Unavailable Unavailable Chris KOO MD Unavailable Unavailable Chris KOO MD Unavailable Unavailable Chris KOO MD Unavailable Unavailable Chris KOO MD Unavailable Unavailable Chris KOO MD Unavailable Unavailable Chris KOO MD Unavailable Unavailable Chris KOO MD Unavailable Unavailable Chris KOO MD Unavailable Unavailable Chris KOO MD Unavailable Unavailable Chris KOO MD Unavailable Unavailable Chris KOO MD Unavailable Unavailable Chris KOO MD Unavailable Unavailable Chris KOO MD Unavailable Unavailable Chris KOO MD Unavailable Unavailable Chris KOO MD Unavailable Unavailable Chris KOO MD Unavailable Unavailable Chris KOO MD Unavailable Unavailable Chris KOO MD Unavailable Unavailable Chris KOO MD Unavailable Unavailable Chris KOO MD Unavailable Unavailable Chris KOO MD Unavailable Unavailable Chris KOO MD Unavailable Unavailable Chris KOO MD Unavailable Unavailable Chris KOO MD Unavailable Unavailable Chris KOO MD Unavailable Unavailable Chris KOO MD Unavailable Unavailable Chris KOO MD Unavailable Unavailable Chris KOO MD Unavailable Unavailable Chris KOO MD Unavailable Unavailable Chris KOO MD Unavailable Unavailable Chris KOO MD Unavailable Unavailable Chris KOO MD Unavailable Unavailable Chris KOO MD Unavailable Unavailable Chris KOO MD Unavailable Unavailable MICHELLE LIMON Unavailable Unavailable CHADWICKJose Manuel MD Unavailable Unavailable CHADWICKJose Manuel MD Unavailable Unavailable CHADWICKJose Manuel MD Unavailable Unavailable CHADWICKJose Manuel MD Unavailable Unavailable CHADWICKJose Manuel MD Unavailable Unavailable CHADWICKJose Manuel MD Unavailable Unavailable CHADWICKJose Manuel MD Unavailable Unavailable CHADWICKJose Manuel MD Unavailable Unavailable CHADWICKJose Manuel MD Unavailable Unavailable CHADWICKJose Manuel MD Unavailable Unavailable CHADWICKJose Manuel MD Unavailable Unavailable CHADWICKJose Manuel MD Unavailable Unavailable CHADWICKJose Manuel MD Unavailable Unavailable CHADWICKJose Manuel MD Unavailable Unavailable CHADWICKJose Manuel MD Unavailable Unavailable CHADWICKJose Manuel MD Unavailable Unavailable CHADWICKJose Manuel MD Unavailable Unavailable CHADWICKJose Manuel MD Unavailable Unavailable CHADWICKJose Manuel MD Unavailable Unavailable CHADWICKJose Manuel MD Unavailable Unavailable CHADWICKJose Manuel MD Unavailable Unavailable CHADWICKJose Manuel MD Unavailable Unavailable CHADWICKJose Manuel MD Unavailable Unavailable CHADWICKJose Manuel MD Unavailable Unavailable CHADWICKJose Manuel MD Unavailable Unavailable CHADWICKJose Manuel MD Unavailable Unavailable CHADWICKJose Manuel MD Unavailable Unavailable CHADWICKJose Manuel MD Unavailable Unavailable CHADWICK F JOSE CARLOS QUAN Unavailable Unavailable CHADWICKJose Manuel MD Unavailable Unavailable CHADWICK F JOSE CARLOS QUAN Unavailable Unavailable Tam, Janine Mona OPERATIONS AND MAINTENANCE SPECIALIST-C Unavailable Unavailabl e Tam, Janine Mona OPERATIONS AND MAINTENANCE SPECIALIST-C Unavailable Unavailabl e Tam, Janine Mona OPERATIONS AND MAINTENANCE SPECIALIST-C Unavailable Unavailabl e Tam, Janine Mona OPERATIONS AND MAINTENANCE SPECIALIST-C Unavailable Unavailabl e Tam, Janine Mona OPERATIONS AND MAINTENANCE SPECIALIST-C Unavailable Unavailabl e Tam, Janine Mona OPERATIONS AND MAINTENANCE SPECIALIST-C Unavailable Unavailabl e Tam, Janine Dunn OPERATIONS AND MAINTENANCE SPECIALIST-C Unavailable Unavailabl e Tam, Janine Dunn OPERATIONS AND MAINTENANCE SPECIALIST-C Unavailable Unavailabl e Tam, Janine Dunn OPERATIONS AND MAINTENANCE SPECIALIST-C Unavailable Unavailabl e Tam, Janine Dunn OPERATIONS AND MAINTENANCE SPECIALIST-C Unavailable Unavailabl e Tam, Janine Dunn OPERATIONS AND MAINTENANCE SPECIALIST-C Unavailable Unavailabl e Tam, Janine Dunn OPERATIONS AND MAINTENANCE SPECIALIST-C Unavailable Unavailabl e Tam, Janine Dunn OPERATIONS AND MAINTENANCE SPECIALIST-C Unavailable Unavailabl e Tam, Janine Dunn OPERATIONS AND MAINTENANCE SPECIALIST-C Unavailable Unavailabl e Tam, Janine Dunn OPERATIONS AND MAINTENANCE SPECIALIST-C Unavailable Unavailabl e Tam, Janine Dunn OPERATIONS AND MAINTENANCE SPECIALIST-C Unavailable Unavailabl e Tam, Janine Dunn OPERATIONS AND MAINTENANCE SPECIALIST-C Unavailable Unavailabl e Tam, Janine Dunn OPERATIONS AND MAINTENANCE SPECIALIST-C Unavailable Unavailabl e Tam, Janine Dunn OPERATIONS AND MAINTENANCE SPECIALIST-C Unavailable Unavailabl e Tam, Janine Dunn OPERATIONS AND MAINTENANCE SPECIALIST-C Unavailable Unavailabl e Tam, Janine Dunn OPERATIONS AND MAINTENANCE SPECIALIST-C Unavailable Unavailabl e Tam, Janine Dunn OPERATIONS AND MAINTENANCE SPECIALIST-C Unavailable Unavailabl e Tam, Janine Dunn OPERATIONS AND MAINTENANCE SPECIALIST-C Unavailable Unavailabl e Tam, Janine Dunn OPERATIONS AND MAINTENANCE SPECIALIST-C Unavailable Unavailabl e Tam, Janine Dunn OPERATIONS AND MAINTENANCE SPECIALIST-C Unavailable Unavailabl e Tam, Janine Dunn OPERATIONS AND MAINTENANCE SPECIALIST-C Unavailable Unavailabl e Tam, Janine Dunn OPERATIONS AND MAINTENANCE SPECIALIST-C Unavailable Unavailabl e Tam, Janine Dunn OPERATIONS AND MAINTENANCE SPECIALIST-C Unavailable Unavailabl e Tam, Janine Dunn OPERATIONS AND MAINTENANCE SPECIALIST-C Unavailable Unavailabl e Tam, Janine Dunn OPERATIONS AND MAINTENANCE SPECIALIST-C Unavailable Unavailabl e Tam, Janine Dunn OPERATIONS AND MAINTENANCE SPECIALIST-C Unavailable Unavailabl e Tam, Janine Dunn OPERATIONS AND MAINTENANCE SPECIALIST-C Unavailable Unavailabl e Tam, Janine Dunn OPERATIONS AND MAINTENANCE SPECIALIST-C Unavailable Unavailabl e Tam, Janine Dunn OPERATIONS AND MAINTENANCE SPECIALIST-C Unavailable Unavailabl e Tam, Janine Dunn OPERATIONS AND MAINTENANCE SPECIALIST-C Unavailable Unavailabl e Tam, Janine Dunn OPERATIONS AND MAINTENANCE SPECIALIST-C Unavailable Unavailabl e Tam, Janine Dunn OPERATIONS AND MAINTENANCE SPECIALIST-C Unavailable Unavailabl e Tam, Janine Dunn OPERATIONS AND MAINTENANCE SPECIALIST-C Unavailable Unavailabl e Tam, Janine Dunn OPERATIONS AND MAINTENANCE SPECIALIST-C Unavailable Unavailabl e Tam, Janine Dunn OPERATIONS AND MAINTENANCE SPECIALIST-C Unavailable Unavailabl e Tam, Janine Dunn OPERATIONS AND MAINTENANCE SPECIALIST-C Unavailable Unavailabl e Tam, Janine Dunn OPERATIONS AND MAINTENANCE SPECIALIST-C Unavailable Unavailabl e Tam, Janine Dunn OPERATIONS AND MAINTENANCE SPECIALIST-C Unavailable Unavailabl e Tam, Janine Dunn OPERATIONS AND MAINTENANCE SPECIALIST-C Unavailable Unavailabl e Tam, Janine Reynoldsfer OPERATIONS AND MAINTENANCE SPECIALIST-C Unavailable Unavailabl e Tam, Janine Reynoldsfer OPERATIONS AND MAINTENANCE SPECIALIST-C Unavailable Unavailabl e Tam, Janine Grandanifer OPERATIONS AND MAINTENANCE SPECIALIST-C Unavailable Unavailabl e Tam, Janine Reynoldsfer OPERATIONS AND MAINTENANCE SPECIALIST-C Unavailable Unavailabl e Tam, Janine Reynoldsfer OPERATIONS AND MAINTENANCE SPECIALIST-C Unavailable Unavailabl e Tam, Janine Dunn OPERATIONS AND MAINTENANCE SPECIALIST-C Unavailable Unavailabl e Tam, Janine Dunn OPERATIONS AND MAINTENANCE SPECIALIST-C Unavailable Unavailabl e NOT, SPECIFIED Unavailable Unavailable Wall PRINT JOURNALIST, A Tremayne Unavailable [phone] Wall PRINT JOURNALIST, A Tremayne Unavailable [phone] Wall PRINT JOURNALIST, A Tremayne Unavailable [phone] Wall PRINT JOURNALIST, A Tremayne Unavailable [phone] Wall PRINT JOURNALIST, A Tremayne Unavailable [phone] Wall PRINT JOURNALIST, A Tremayne Unavailable [phone] GURPREET REDMAN MD Unavailable Unavailable GURPREET REDMAN MD Unavailable Unavailable GURPREET REDMAN MD Unavailable Unavailable GURPREET REDMAN MD Unavailable Unavailable GURPREET REDMAN MD Unavailable Unavailable GURPREET REDMAN MD Unavailable Unavailable GURPREET REDMAN MD Unavailable Unavailable GURPREET REDMAN MD Unavailable Unavailable GURPREET REDMAN MD Unavailable Unavailable GURPREET REDMAN MD Unavailable Unavailable GURPREET REDMAN MD Unavailable Unavailable GURPREET REDMAN MD Unavailable Unavailable GURPREET REDMAN MD Unavailable Unavailable GURPREET REDMAN MD Unavailable Unavailable GURPREET REDMAN MD Unavailable Unavailable GURPREET REDMAN MD Unavailable Unavailable GURPREET REDMAN MD Unavailable Unavailable GURPREET REDMAN MD Unavailable Unavailable GURPREET REDMAN MD Unavailable Unavailable GURPREET REDMAN MD Unavailable Unavailable KHAIRALLAH, RAMZI MD Unavailable Unavailable KHAIRALLAH, RAMZI MD Unavailable Unavailable KHAIRALLAH, RAMZI MD Unavailable Unavailable KHAIRALLAH, RAMZI MD Unavailable Unavailable KHAIRALLAH, RAMZI MD Unavailable Unavailable KHAIRALLAH, RAMZI MD Unavailable Unavailable KHAIRALLAH, RAMZI MD Unavailable Unavailable KHAIRALLAH, RAMZI MD Unavailable Unavailable KHAIRALLAH, RAMZI MD Unavailable Unavailable KHAIRALLAH, RAMZI MD Unavailable Unavailable KHAIRALLAH, RAMZI MD Unavailable Unavailable KHAIRALLAH, RAMZI MD Unavailable Unavailable KHAIRALLAH, RAMZI MD Unavailable Unavailable KHAIRALLAH, RAMZI MD Unavailable Unavailable KHAIRALLAH, RAMZI MD Unavailable Unavailable KHAIRALLAH, RAMZI MD Unavailable Unavailable KHAIRALLAH, RAMZI MD Unavailable Unavailable KHAIRALLAH, RAMZI MD Unavailable Unavailable KHAIRALLAH, RAMZI MD Unavailable Unavailable KHAIRALLAH, RAMZI MD Unavailable Unavailable KHAIRALLAH, RAMZI MD Unavailable Unavailable KHAIRALLAH, RAMZI MD Unavailable Unavailable KHAIRALLAH, RAMZI MD Unavailable Unavailable KHAIRALLAH, RAMZI MD Unavailable Unavailable KHAIRALLAH, RAMZI MD Unavailable Unavailable KHAIRALLAH, RAMZI MD Unavailable Unavailable KHAIRALLAH, RAMZI MD Unavailable Unavailable KHAIRALLAH, RAMZI MD Unavailable Unavailable KHAIRALLAH, RAMZI MD Unavailable Unavailable KHAIRALLAH, RAMZI MD Unavailable Unavailable KHAIRALLAH, RAMZI MD Unavailable Unavailable KHAIRALLAH, RAMZI MD Unavailable Unavailable KHAIRALLAH, RAMZI MD Unavailable Unavailable KHAIRALLAH, RAMZI MD Unavailable Unavailable KHAIRALLAH, RAMZI MD Unavailable Unavailable KHAIRALLAH, RAMZI MD Unavailable Unavailable KHAIRALLAH, RAMZI MD Unavailable Unavailable KHAIRALLAH, RAMZI MD Unavailable Unavailable KHAIRALLAH, RAMZI MD Unavailable Unavailable KHAIRALLAH, RAMZI MD Unavailable Unavailable KHAIRALLAH, RAMZI MD Unavailable Unavailable KHAIRALLAH, RAMZI MD Unavailable Unavailable KHAIRALLAH, RAMZI MD Unavailable Unavailable KHAIRALLAH, RAMZI MD Unavailable Unavailable KHAIRALLAH, RAMZI MD Unavailable Unavailable KHAIRALLAH, RAMZI MD Unavailable Unavailable KHAIRALLAH, RAMZI MD Unavailable Unavailable KHAIRALLAH, RAMZI MD Unavailable Unavailable KHAIRALLAH, RAMZI MD Unavailable Unavailable KHAIRALLAH, RAMZI MD Unavailable Unavailable KHAIRALLAH, RAMZI MD Unavailable Unavailable KHAIRALLAH, RAMZI MD Unavailable Unavailable KHAIRALLAH, RAMZI MD Unavailable Unavailable KHAIRALLAH, RAMZI MD Unavailable Unavailable KHAIRALLAH, RAMZI MD Unavailable Unavailable KHAIRALLAH, RAMZI MD Unavailable Unavailable KHAIRALLAH, RAMZI MD Unavailable Unavailable KHAIRALLAH, RAMZI MD Unavailable Unavailable KHAIRALLAH, RAMZI MD Unavailable Unavailable KHAIRALLAH, RAMZI MD Unavailable Unavailable KHAIRALLAH, RAMZI MD Unavailable Unavailable KHAIRALLAH, RAMZI MD Unavailable Unavailable KHAIRALLAH, RAMZI MD Unavailable Unavailable KHAIRALLAH, RAMZI MD Unavailable Unavailable KHAIRALLAH, RAMZI MD Unavailable Unavailable KHAIRALLAH, RAMZI MD Unavailable Unavailable KHAIRALLAH, RAMZI MD Unavailable Unavailable KHAIRALLAH, RAMZI MD Unavailable Unavailable Re-disclosure Warning The records that you are about to access may contain information from federally-assisted alcohol or drug abuse programs. If such information is present, then the following federally mandated warning applies: This information has been disclosed to you from records protected by federal confidentiality rules (42 CFR part 2). The federal rules prohibit you from making any further disclosure of this information unless further disclosure is expressly permitted by the written consent of the person to whom it pertains or as otherwise permitted by 42 CFR part 2. A general authorization for the release of medical or other information is NOT sufficient for this purpose. The Federal rules restrict any use of the information to criminally investigate or prosecute any alcohol or drug abuse patient.The records that you are about to access may contain highly sensitive health information, the redisclosure of which is protected by Article 27-F of the [facility] Public Health law. If you continue you may have access to information: Regarding HIV / AIDS; Provided by facilities licensed or operated by the [facility] Office of Mental Health; or Provided by the [facility] Office for People With Developmental Disabilities. If such information is present, then the following [facility] mandated warning applies: This information has been disclosed to you from confidential records which are protected by state law. State law prohibits you from making any further disclosure of this information without the specific written consent of the person to whom it pertains, or as otherwise permitted by law. Any unauthorized further disclosure in violation of state law may result in a fine or chcf sentence or both. A general authorization for the release of medical or other information is NOT sufficient authorization for further disc losure. Family History Family Member Name Family Member Gender Family Member Status Date o f Status Description Data Source(s) Unknown Female Problem (finding) 07/15/2014 12:00:00 AM EDT [facility] ([facility]) Unknown Unknown Problem [facility] ([facility]) Encounters Encounter Providers Location Date Indications Data Source(s ) Outpatient Attender: JOSE CARLOS GENAO MDA ttender: Bassam Diehl DOConsultant: SPECIFIED NOT 12/09/2020 01:51:00 PM EDT - 12/09/2020 01:51:00 PM EDT [facility] Outpatient Attender: Bassam Diehl DOConsultant: SPECIFIED NOT 11/05/2020 12:49:02 PM EDT - 11/14/2020 09:17:00 AM EDT [facility] Patient discharged. Outpatient Attender: Bassam Diehl DOConsultant: SPECIFIED NOT 09/29/2020 02:23:00 PM EDT - 09/29/2020 02:23:00 PM EDT [facility] Outpatient Attender: GEOVANY KOO MDReferrer: Homero GENAO MD [id number] 09/08/2020 12:00:00 AM EDT - 09/08/2020 01:03:14 PM [facility] Outpatient Attender: MICHELLE LIMONReferrer: JOSE CARLOS Nowak 09/08/2020 12:00:00 AM [facility] Outpatient Attender: Bassam Diehl DOConsultant: SPECIFIED NOT 09/05/2020 01:38:00 PM EDT - 09/05/2020 02:38:00 PM T [facility] Patient discharged. Outpatient Attender: Bassam Diehl DOConsultant: SPECIFIED NOT 08/26/2020 01:12:00 PM EDT - 08/26/2020 01:12:00 PM [facility] Attender: GURPREET REDMAN MD [facility] 08/16/2020 11:04:00 PM EDT - 08/16/2020 11:04:00 PM EDT [facility] ( [facility]) 08/11/2020 09:13:00 AM EDT - 021 09:13:00 AM EDT [facility] ([facility]) Attender: Mona DON [facility] 08/04/2020 12:19:00 PM EDT - 08/04/2020 12:19:00 PM EDT [facility] ( [facility]) Outpatient Attender: Bassam Diehl DOConsultant: SPECIFIED NOT 07/29/2020 10:28:00 AM EDT - 07/29/2020 10:28:00 AM EDT [facility] Attender: Mona DON [facility] 07/27/2020 01:26:00 PM EDT - 07/27/2020 01:26:00 PM EDT [facility] ( [facility]) Attender: Mona DON [facility] 07/07/2020 03:36:00 PM EDT - 07/07/2020 03:36:00 PM EDT [facility] ( [facility]) Outpatient Attender: Bassam Diehl DOConsultant: SPECIFIED NOT 07/07/2020 03:32:00 PM EDT - 07/07/2020 04:32:00 PM [facility] Patient discharged. Outpatient Attender: Bassam Diehl DOConsultant: SPECIFIED NOT 06/26/2020 01:15:00 PM EDT - 06/26/2020 01:15:00 PM EDT [facility] Attender: Mona DON [facility] 06/26/2020 08:31:00 AM EDT - 06/26/2020 08:31:00 AM EDT [facility] ( [facility]) Outpatient 06/03/2020 09:29:49 AM EDT [facility] ([facility]) OFFICE/OUTPATIENT VISIT, ESTOutpatient Attender: Tremayne Mccray PRINT JOURNALIST [facility] 04/16/2020 03:20:00 PM EST - 04/16/2020 03:20:00 PM ES T Other psoriatic arthropathy [facility] ([facility]) Other psoriatic arthropathy Attender: Mona Turcios OPERATIONS AND MAINTENANCE SPECIALIST-C [facility] 04/14/2020 03:26:00 PM EST - 04/14/2020 03:26:00 PM EST [facility] ( [facility]) Attender: GURPREET REDMAN [facility] 03/24/2020 07:05:00 PM EST - 03/24/2020 07:05:00 PM EST [facility] ( [facility]) Attender: Mona Turcios OPERATIONS AND MAINTENANCE SPECIALIST-C [facility] 03/19/2020 09:46:00 AM EST - 03/19/2020 09:46:00 AM EST [facility] ( [facility]) Attender: Mona Turcios OPERATIONS AND MAINTENANCE SPECIALIST-C [facility] 02/26/2020 04:26:00 PM EST - 02/26/2020 04:26:00 PM EST [facility] ( [facility]) Attender: Mona Turcios OPERATIONS AND MAINTENANCE SPECIALIST-C [facility] 02/21/2020 04:28:00 PM EST - 02/21/2020 04:28:00 PM EST [facility] ( [facility]) Attender: Mona Turcios OPERATIONS AND MAINTENANCE SPECIALIST-C [facility] 02/18/2020 12:07:00 PM EST - 02/18/2020 12:07:00 PM EST [facility] ( [facility]) Out[place] [id number] [facility] [address] 02/14/2020 12:00:00 AM EST [email or web address] Attender: Mona Turcios OPERATIONS AND MAINTENANCE SPECIALIST-C [facility] 12/12/2019 12:00:00 PM EDT - 12/12/2019 12:00:00 PM EDT 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 (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) drug therapyOther psoriatic arthropathy [facility] ([facility]) Other group home (current) drug therapy Other psoriatic arthropathy Attender: Mona Turcios OPERATIONS AND MAINTENANCE SPECIALIST-C [facility] 12/03/2019 04:20:00 PM EDT - 12/03/2019 04:20:00 PM EDT [facility] ( [facility]) Attender: Mona Turcios OPERATIONS AND MAINTENANCE SPECIALIST-C [facility] 11/22/2019 10:20:00 AM EDT - 11/22/2019 10:20:00 AM EDT [facility] ( [facility]) Medications Medication Brand Name Start Date Product Form Dose Route Admi nistrative Instructions Pharmacy Instructions Status Indications Reaction Description Data Source(s) Aspirin 81 MG Chewable Tablet Aspirin 81 Low Dose 09/29/2020 12:00: 00 AM EDT ORAL active [facility] ([facility]) Cholecalciferol 5000 UNT Oral Capsule Vitamin D3 Maximum Str ength 08/19/2020 12:00:00 AM EDT ORAL active M EDENT ([facility]) NITROFURANTOIN, MACROCRYSTALS 25 MG / Ni trofurantoin, Monohydrate 75 MG Oral Capsule [Macrobid] Macrobid 08/19/2020 12:00:00 AM EDT ORAL completed [facility] ([facility]) Cholecalciferol 5000 UNT Oral Capsule Vitamin D3 Maximum Str ength 06/26/2020 12:00:00 AM EDT ORAL active M EDENT ([facility]) 1 ML secukinumab 150 MG/ML Prefilled Syr nithin [Cosentyx] Cosentyx 150 mg/mL subcutaneous syringe Cosentyx 150 mg/mL subcutaneous syringe 04/16/2020 12: 00:00 AM EST active 1 ML sec ukinumab 150 MG/ML Prefilled Syringe [Cosentyx] [facility] ([facility]) Prednisone 5 MG Oral Tablet prednisone 5 mg tablets in a dose pack prednisone 5 mg tablets in a dose pack 04/16/2020 12:00:00 AM EST active take 4 Tablet by oral route every day for 4 days then decrease by 1 tab every 4 days [facility] ([facility]) Voltaren 1% topical gel BUCCAL ADH. PATCH Voltaren 1% topic al gel 04/16/2020 12:00:00 AM EST active apply per directions to 4 joints 4 times a day in approx 2 gram dosing. [facility] ([facility]) 1 ML secukinumab 150 MG/ML Prefilled Syr nithin [Cosentyx] Cosentyx 150 mg/mL subcutaneous syringe Cosentyx 150 mg/mL subcutaneous syringe 04/16/2020 12: 00:00 AM EST completed 1 ML s ecukinumab 150 MG/ML Prefilled Syringe [Cosentyx] [facility] ([facility]) 1 ML secukinumab 150 MG/ML Prefilled Syr nithin [Cosentyx] Cosentyx 150 mg/mL subcutaneous syringe Cosentyx 150 mg/mL subcutaneous syringe 12/12/2019 12: 00:00 AM EDT completed 1 ML s ecukinumab 150 MG/ML Prefilled Syringe [Cosentyx] [facility] ([facility]) control pill ORAL ADH. PATCH control pill completed PATCH [facility] Insurance Providers Payer name Policy type / Coverage type Policy ID Covered republican ID Covered republican's relationship to croft Policy Croft Plan Information EXCELLUS H [id number] Child [id number] CHARLINE CARE EXCHANGE [id number] 0 [id number] CHARLINE [employer]ARE COMMERCIAL [id number] S [id number] [employer]ARE COMMERCIAL [id number] S [id number] MVP Healthcare F [id number] SELF [id number] MVP Healthcare F [id number] SELF [id number] [facility] [id number] 0 [id number] Mvp No Referral Required [id number] self [id number] [place] [id number] S [id number] [facility] [id number] EXCELLUS C [id number] Self [id number] Excellus Blue Cross and Blue Shield [place] Blue Cross/B lue Shield [id number] Self [id number] [place] WATN [id number] SP [id number] ANSI-Commercial [id number] [place] [id number] S [id number] ANSI-Commercial [id number] [place] [id number] S [id number] [id number] ANSI-Commercial [id number] [employer] Commercial [id number] Self [id number] [facility] [id number] S [id number] [facility] COMMERCIAL [id number] S [id number] ANSI-Not a Secondary Insurance [id number] [facility] [id number] SP [id number] ANSI-Not a Secondary Insurance [id number] ANSI-Not a Secondary Insurance [id number] [facility] O [id number] S [id number] [facility] (md) Commercial [id number] Self [id number] SELF PAY UNAVAILABLE S UNAVAILA BLE [facility] [id number] SP [id number] [facility] [id number] SP [id number] [facility] O [id number] S [id number] [place] [place] 306/806 [id number] BS [place] Commercial [id number] [employer] [place] 306/806 [id number] [place] 306/806 [id number] [facility] [id number] SP [id number] [facility] [id number] SP [id number] MEDICAID S [id number] C [id number] [employer] BCBS P [id number] C VYA [id number] BCBS [place] O [id number] SP [id number] [employer] [id number] [employer]-O/P [id number] 18 [id number] [employer]-O/P [id number] 19 [id number] [employer] [place] 306/806 [id number] SP [id number] SELF PAY ONLY [id number] SP [id number] [place] [place] PPO 302/307 [id number] SP [id number] [facility] [id number] S [id number] [employer] P [id number] S [id number] Self Pay P UNAVAILABLE S UNAVAILA BLE [employer] BCBS B [id number] S [id number] [place] PPO 302/307 [id number] SP [id number] Problems, Conditions, and Diagnoses Code Display Name Description Problem Type Effective Dates Data Source(s) Z3A33 33 weeks gestation of 33 weeks gestation of Diagnosis 12/09/2020 01:51:00 PM [facility] X27757 Other specified diseases and conditions complicating Other specified diseases and conditions complicating Diagnosis 12/09/2020 01:51:00 PM [facility] R030 Elevated blood-pressure reading, without diagnosis of hypertension Elevated blood-pressure reading, without diagnosis of hypertension Diagnosis 12/09/2020 01:51:00 PM [facility] Z5321 Procedure and treatment not carried out due to patient leaving prior to being seen by health care provider Procedure and treatment not carried out due to patient leaving prior to being seen by health care provider Diagnosis 11/14/2020 09:17:00 AM [facility] Z3A23 23 weeks gestation of 23 weeks gestation of Diagnosis 09/29/2020 02:23:00 PM [facility] Z3482 Encounter for supervision of other rodolfo l , second trimester Encounter for supervision of other normal , second trimester Diagnosis 09/29/2020 02:23:00 PM [facility] Z3A19 19 weeks gestation of 19 weeks gestation of Diagnosis 09/05/2020 01:38:00 PM [facility] Z3A18 18 weeks gestation of 18 weeks gestation of Diagnosis 08/26/2020 01:12:00 PM [facility] Z3402 Encounter for supervision of normal firs t , second trimester Encounter for supervision of normal first , second trimester Diagnosis 08/26/2020 01:12:00 PM [facility] Z3A14 14 weeks gestation of 14 weeks gestation of Diagnosis 07/29/2020 10:28:00 AM [facility] Z3A11 11 weeks gestation of 11 weeks gestation of Diagnosis 07/07/2020 03:32:00 PM [facility] Z3401 Encounter for supervision of normal firs t , first trimester Encounter for supervision of normal first , first trimester Diagnosis 07/07/2020 03:32:00 PM [facility] Z3A09 9 weeks gestation of 9 weeks gestation of pr egnancy Diagnosis 06/26/2020 01:15:00 PM [facility] L30257 Drug use complicating , first t rimester Drug use complicating , first trimester Diagnosis 06/26/2020 01:15:00 PM [facility] W60031 Nicotine dependence, cigarettes, uncompl icated Nicotine dependence, cigarettes, uncomplicated Diagnosis 06/26/2020 01:15:00 PM [facility] K10482 Smoking (tobacco) complicating , first trimester Smoking (tobacco) complicating , first trimester Diagnosis 06/11 01:15:00 PM [facility] N92.6 [id number] Late menstruation Problem 02/14/2020 12:00:0 0 AM EST eCW1 ([facility]) Surgeries/Procedures Procedure Description Date Indications Data Source(s) Antepartum F/U visit 06/26/2020 12:00:00 AM EDT [facility] HEP B SURFACE ANTIBODY 04/16/2020 12:00: 00 AM EST - 04/16/2020 12:00:00 AM EST [facility] ([facility]) HEPATITIS C AB TEST 04/16/2020 12:00:00 AM EST - 04/16 12:00:00 AM EST [facility] ([facility]) HEPATITIS B SURFACE, AG, EIA 04/16/2020 12:00:00 AM EST - 04/16/2020 12:00:00 AM EST [facility] ([facility]) TRANSFERASE (AST) (SGOT) 04/16/2020 12:0 0:00 AM EST - 04/16/2020 12:00:00 AM EST [facility] ([facility]) ALANINE AMINO (ALT) (SGPT) 04/16/2020 12 :00:00 AM EST - 04/16/2020 12:00:00 AM EST [facility] ([facility]) ASSAY OF UREA NITROGEN 04/16/2020 12:00: 00 AM EST - 04/16/2020 12:00:00 AM EST [facility] ([facility]) ASSAY OF CREATININE 04/16/2020 12:00:00 AM EST - 04/16 12:00:00 AM EST [facility] ([facility]) RBC SED RATE, AUTOMATED 04/16/2020 12:00 :00 AM EST - 04/16/2020 12:00:00 AM EST [facility] ([facility]) COMPLETE CBC W/AUTO DIFF WBC 04/16/2020 12:00:00 AM EST - 04/16/2020 12:00:00 AM EST [facility] ([facility]) ROUTINE VENIPUNCTURE 04/16/2020 12:00:00 AM EST - 04/16/2020 12:00:00 AM EST [facility] ([facility]) OFFICE/OUTPATIENT VISIT, EST 04/16/2020 12:00:00 AM EST - 04/16/2020 12:00:00 AM EST [facility] ([facility]) Results ID Date Data Source [id number] 12/12/2020 09:44:00 AM EDT [facility] Name Value Range Interpretation Code Description Data Makenzie rce(s) Supporting Document(s) CULTURE URINE [facility] _CULTURE URINE_$$[id number]$$268401$$682241$$761007$$294313$$950194$$269604$$071156$$884610$$ 862787$$222324$$543642$$151792$$870047$$684279$$486123$$093151$$242865$$312041$$ 508786$$681207$$476639$$361477$$636362$$613770$$948378$$255945 -- Continued on next page --Patient: YOLANDA POMPA Order: [id number] Page 2Culture: CULTURE URINE Status: Final ====$$[id number]$$[id number] DATE/TIME: 12/12/2020 07:06Culture: CULTURE URINE Status: FinalUrine Culture,Comprehensive: Z0Nmuit urogenital flora10,000-25,000 colony forming units per mLP1 Test performed by: [facility] #: [id number] [address] [place] [address] [id number] [facility] [id number] Director : Carlos Min MD NPI #: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 Machine 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 : 12/12/[email or web address].[email or web address] REF ID Date Data Source [id number] 09/29/2020 03:24:00 PM EDT [facility] ([facility]) Name Value Range Interpretation Code Description Data Makenzie rce(s) Supporting Document(s) Laboratory test finding (navigational concept) Laboratory test result [facility] ([facility]) ID Date Data Source [id number] 09/08/2020 01:19:47 PM EDT [facility] Name Value Range Interpretation Code Description Data Makenzie rce(s) Supporting Document(s) Progress Note [facility] [id number] lbm [file] 9GDQo= ID Date Data Source [id number] 09/08/2020 09:52:00 AM EDT [facility] [address] [place] [address] PHONE: [phone] FAX: [phone] Name .................. : YOLANDA JOHNSONE Denise Acct Number.................. : [id number] ROOM. ................. : Number ................... : [id number] Stay type ............. : O/P Discharge Date......... ... : 09/05/20 Admit Date ......... : 09/05/20 Admit Phys .................... : NWOGU GIOVANNY Date of ....... : 1995 Family Phys ................... : Phone .................. : [phone] Age ................................ : 24 Film# .................. .:[id number] Sex ................................. : F Unsigned transcriptions are preliminary reports and do not represent a medical or legal document US OB ANATOMY SCAN (ROUTINE A 25701 COMPLETE:09/05/20 15:26 ADB 02906 Reason for Exam: ANATOMY OBSTETRICAL ULTRASOUND ANATOMY SCAN: FINDINGS: There is a viable IUP identified. lie is cephalic. Anterior placenta with no previa. Age is 19 weeks 4 days plus/minus 1 week, leading to an EDC of 01/26/21. Amniotic fluid index is 9.1 cm. lie is cephalic. Anterior placenta with no previa. There is suboptimal visualization of the face, the kidneys, the four chamber view of the heart, the right and left ventricular outflow tracts, the cerebellum, the lateral ventricles and the cisterna magna. All other anatomy is within normal limits. IMPRESSION: Follow up of the structure noted as described above. Electronically Reviewed and Signed By PRATIK YING MD , 09/08/20 09:52, [facility] Transcribe Initials: DZ , Transcribe Date: 09/06/20 20:12, Dictation Date: Copy for: [facility] MED REC Page 1 of 1 Name Value Range Interpretation Code Description Data Makenzie rce(s) Supporting Document(s) ID Date Data Source [id number] 08/26/2020 01:50:00 PM EDT [facility] ([facility]) Name Value Range Interpretation Code Description Data Makenzie rce(s) Supporting Document(s) Laboratory test finding (navigational concept) Laboratory test result [facility] ([facility]) ID Date Data Source [id number] 07/09/2020 11:36:00 AM EDT [facility] [address] [place] [address] PHONE: [phone] FAX: [phone] Name .................. : YOLANDA Walker Acct Number.................. : [id number] ROOM. ................. : MR Number ................... : [id number] Stay type ............. : O/P Discharge Date......... ... : 07/07/20 Admit Date ......... : 07/07/20 Admit Phys .................... : NWOGU GIOVANNY Date of ....... : 1995 Family Phys ................... : Phone .................. : [phone] Age ................................ : 24 Film# .................. .:[id number] Sex ................................. : F Unsigned transcriptions are preliminary reports and do not represent a medical or legal document OB 1ST TRI UP TO 14 WEEKS 22719 COMPLETE:07/07/20 15:52 [facility] 9777 Reason for Exam: Via/dating OB ULTRASOUND: INDICATION: Viability and dating. FINDINGS: Limited transabdominal OB ultrasound performed. The uterus is anteverted. A single gestational sac. A yolk sac is identified. pole identified. [facility] rump length measures 40.75 mm equaling an 11 week 0 day gestation. heart rate is 161 beats per minute. The ovaries are unremarkable. No adnexal mass. No free fluid. The urinary bladd er is not evaluated. IMPRESSION: Viable intrauterine . Calculated age is 11 weeks 0 days. Estimated date of delivery of 01/26/21. Electronically Reviewed and Signed By Joaquin Katz DO , 07/09/20 11:36, [facility] Transcribe Initials: DZ , Transcribe Date: 07/07/20 22:02, Dictation Date: Copy for: 710 MED REC Page 1 of 1 Name Value Range Interpretation Code Description Data Makenzie rce(s) Supporting Document(s) ID Date Data Source [id number] 07/08/2020 02:16:00 PM EDT [facility] ([facility]) Name Value Range Interpretation Code Description Data Makenzie rce(s) Supporting Document(s) Misc Test - Put Test In Order Laboratory test result [facility] ([facility]) ID Date Data Source [id number] 07/08/2020 02:16:00 PM EDT [facility] ([facility]) Name Value Range Interpretation Code Description Data Makenzie rce(s) Supporting Document(s) FRAXE gene CGG repeats [Presence] in Blo od or Tissue by Molecular genetics method Laboratory test result [facility] ([facility]) ID Date Data Source [id number] 07/08/2020 02:16:00 PM EDT [facility] ([facility]) Name Value Range Interpretation Code Description Data Makenzie rce(s) Supporting Document(s) Z#Other Observations Laboratory test result [facility] ([facility]) ID Date Data Source [id number] 07/08/2020 02:16:00 PM EDT [facility] ([facility]) Name Value Range Interpretation Code Description Data Makenzie rce(s) Supporting Document(s) Z#Other Observations Laboratory test result [facility] ([facility]) ID Date Data Source [id number] 06/26/2020 03:26:00 PM EDT [facility] ([facility]) Name Value Range Interpretation Code Description Data Makenzie rce(s) Supporting Document(s) Laboratory test finding (navigational concept) Laboratory test result [facility] ([facility]) ID Date Data Source [id number] 06/26/2020 02:27:00 PM EDT [facility] ([facility]) Name Value Range Interpretation Code Description Data Makenzie rce(s) Supporting Document(s) Chlamydia trachomatis,Lala Laboratory test result [facility] ([facility]) {SOURCE: Genital Source: Laboratory test result [facility] ([facility]) {SOURCE: Genital Neisseria gonorrhoeae,Lala Laboratory test result [facility] ([facility]) {SOURCE: Genital ID Date Data Source [id number] 06/29/2020 07:01:00 PM EDT [facility] Name Value Range Interpretation Code Description Data Makenzie rce(s) Supporting Document(s) SOURCE: Genital [facility] Chlamydia trachomatis rRNA [Presence] in Unspecified specimen by Probe and target amplification method Negative Negative [facility] Neisseria gonorrhoeae rRNA [Presence] in Unspecified specimen by Probe and target amplification method Negative Negative [facility] ID Date Data Source [id number] 06/26/2020 02:27:00 PM EDT [facility] ([facility]) Name Value Range Interpretation Code Description Data Makenzie rce(s) Supporting Document(s) Cytology report of Cervical or vaginal smear or scrapi ng Cyto stain.thin prep Laboratory test result [facility] ([facility]) ID Date Data Source [id number] 06/26/2020 01:20:00 PM EDT [facility] ([facility]) Name Value Range Interpretation Code Description Data Makenzie rce(s) Supporting Document(s) Choriogonadotropin.beta subunit ( test) [Pres ence] in Urine Laboratory test result [facility] ([facility]) ID Date Data Source [id number] 04/16/2020 04:55:00 PM EST [facility] ([facility]) Name Value Range Interpretation Code Description Data Makenzie rce(s) Supporting Document(s) 0.9 mg/dL 0.6-1.2 CREATININE [facility] ([facility]) >60 eGFR Non- [facility] ([facility]) >60 eGFR [facility] ([facility]) ID Date Data Source [id number] 04/16/2020 04:55:00 PM EST [facility] ([facility]) Name Value Range Interpretation Code Description Data Makenzie rce(s) Supporting Document(s) 14 mg/dL 10-23 BUN [facility] ([facility]) ID Date Data Source [id number] 04/16/2020 04:55:00 PM EST [facility] ([facility]) Name Value Range Interpretation Code Description Data Makenzie rce(s) Supporting Document(s) 16 U/L 15-37 AST [facility] ([facility]) ID Date Data Source [id number] 04/16/2020 04:55:00 PM EST [facility] ([facility]) Name Value Range Interpretation Code Description Data Makenzie rce(s) Supporting Document(s) Reactive HBsAb [facility] ([facility]) ID Date Data Source [id number] 04/16/2020 04:55:00 PM EST [facility] ([facility]) Name Value Range Interpretation Code Description Data Makenzie rce(s) Supporting Document(s) 23 U/L 30-65 Below low normal ALT [facility] ([facility]) ID Date Data Source [id number] 04/16/2020 04:55:00 PM EST [facility] ([facility]) Name Value Range Interpretation Code Description Data Makenzie rce(s) Supporting Document(s) Nonreactive HBsAg [facility] ([facility]) ID Date Data Source [id number] 04/16/2020 04:55:00 PM EST [facility] ([facility]) Name Value Range Interpretation Code Description Data Makenzie rce(s) Supporting Document(s) 13 mm/Hr 0-20 ESR [facility] ([facility]) ID Date Data Source [id number] 04/16/2020 04:55:00 PM EST [facility] ([facility]) Name Value Range Interpretation Code Description Data Makenzie rce(s) Supporting Document(s) Nonreactive HCV [facility] ([facility]) ID Date Data Source [id number] 04/16/2020 04:55:00 PM EST [facility] ([facility]) Name Value Range Interpretation Code Description Data Makenzie rce(s) Supporting Document(s) 4.17 10*6/uL 3.50-5.50 RBC [facility] ([facility]) 7.4 10*3/uL 3.7-10.1 WBC [facility] ([facility]) 13.7 g/dL 12.0-16.0 HGB [facility] ([facility]) 97.4 fL 80.0-100.0 MCV [facility] ([facility]) 40.6 % 36.0-48.0 HCT [facility] ([facility]) 32.8 pg 26.0-34.0 MCH [facility] ([facility]) 33.6 g/dL 31.0-37.0 MCHC [facility] ([facility]) 202 10*3/uL 150-500 PLATELETS [facility] ([facility]) 11.6 % 10.0-15.0 RDW [facility] ([facility]) 6.6 fL 6.0-10.0 MPV [facility] ([facility]) 3.20 10*3/uL 2.10-8.00 CORINNA# [facility] ([facility]) 3.08 10*3/uL 1.00-5.00 LYM# [facility] ([facility]) 0.80 10*3/uL 0.10-1.00 MONO# [facility] ([facility]) 0.3 10*3/uL 0.0-0.5 EOS# [facility] ([facility]) 0.1 10*3/uL 0.0-0.2 BASO# [facility] ([facility]) 41.5 % 25.0-50.0 LYM% [facility] ([facility]) 43.1 % 50.0-80.0 Below low normal CORINNA% [facility] 10.7 % 2.0-10.0 Above high normal MONO% [facility]) 3.4 % 0.0-5.0 EOS% [facility] ([facility]) 1.4 % 0.0-4.0 BASO% [facility] ([facility]) ID Date Data Source [id number] 02/14/2020 12:00:00 AM EST eCW1 ([facility]) Name Value Range Interpretation Code Description Data Makenzie rce(s) Supporting Document(s) NOT DETECTED NEGATIVE eCW1 ([facility]) ID Date Data Source [id number] & GC DNA PROBES 02/14/2020 12:00:00 AM EST eCW1 ([facility]) Name Value Range Interpretation Code Description Data Makenzie rce(s) Supporting Document(s) Negative Negative eCW1 ([facility]) Negative Negative eCW1 ([facility]) ID Date Data Source [id number] 12/12/2019 10:20:56 PM EDT [facility] Name Value Range Interpretation Code Description Data Makenzie rce(s) Supporting Document(s) HCG,QUANT PREG <1 mU/mL Laboratory [facility] INTERPRETATION:LESS THAN 6 NEGATIVE 6 - 10 BORDERLINE (SUGGEST REPEAT IN 48 HOURS) APPROX HCG RANGE WEEKS POST LMP 11 - 130 3 - 4 WEEKS 75 - 2600 4 - 5 WEEKS 850 - 14219 5 - 6 WEEKS 4000 - 675389 6 - 7 [id number] - [id number] 7 - 12 [id number] - [id number] 12 - 16 WEEKS 1400 - 74925 16 - 29 WEEKS 940 - 89808 29 - 41 WEEKS Procedure Social History Code Duration Value Status Description Data Source(s ) Caffeine Use Details 08/16/2020 12:00:00 AM EDT completed [facility] ([facility]) Smoking 08/16/2020 12:00:00 AM EDT Unknown if ever smoked comp leted Unknown if ever smoked [facility] ([facility]) 04/16/2020 12:00:00 AM EST Cigarette smoker completed Cig arette smoker [facility] ([facility]) Smoking 02/14/2020 12:00:00 AM EST Current Smoker completed Curre nt Smoker eCW1 ([facility]) Vital Signs ID Date Data Source [id number] Name Value Range Interpretation Code Description Data Source(s) Systolic blood pressure 146 mm[Hg] 146 mm[Hg] M [facility]ENT ([facility]) Diastolic blood pressure 100 mm[Hg] 100 mm[Hg] [facility] ([facility]) Heart rate 113 /min 113 /min [facility] ([facility]) Body temperature 98.8 [degF] 98.8 [degF] [facility] ([facility]) Body weight 177.00 [lb_av] 177.00 [lb_av] [facility] T ([facility]) Body weight 80.287 kg 80.287 kg [facility] ([facility]) Body height 65 [in_i] 65 [in_i] [facility] ([facility]) 5'5" Body mass index (BMI) [Ratio] 29.5 kg/m2 29.5 k g/m2 [facility] ([facility]) Body surface area Derived from formula 1.88 m2 1.88 m2 [facility] ([facility]) Systolic blood pressure 138 mm[Hg] 138 mm[Hg] M EDENT ([facility]) Diastolic blood pressure 76 mm[Hg] 76 mm[Hg] [facility] ([facility]) Heart rate 78 /min 78 /min [facility] Body temperature 96.9 [degF] 96.9 [degF] [facility] ([facility]) Respiratory rate 16 /min 16 /min [facility] ( [facility]) Oxygen saturation in Arterial blood by Pulse oximetry 98 % 98 % [facility] ([facility]) Body weight 172.25 [lb_av] 172.25 [lb_av] [facility] T ([facility]) Body weight 78.133 kg 78.133 kg [facility] ([facility]) Body height 65 [in_i] 65 [in_i] [facility] 5'5" Body mass index (BMI) [Ratio] 28.7 kg/m2 28.7 k g/m2 [facility] ([facility]) Body surface area Derived from formula 1.86 m2 1.86 m2 [facility] ([facility]) Diastolic blood pressure 68 mm[Hg] 68 mm[Hg] [facility] ([facility]) Heart rate 109 /min 109 /min [facility] ([facility]) Body weight 163.00 [lb_av] 163.00 [lb_av] [facility] T ([facility]) Body weight 73.937 kg 73.937 kg [facility] ([facility]) Body height 65 [in_i] 65 [in_i] [facility] ([facility]) 5'5" Body mass index (BMI) [Ratio] 27.1 kg/m2 27.1 k g/m2 [facility] ([facility]) Body surface area Derived from formula 1.81 m2 1.81 m2 [facility] ([facility]) Systolic blood pressure 140 mm[Hg] 140 mm[Hg] M EDENT ([facility]) Diastolic blood pressure 83 mm[Hg] 83 mm[Hg] [facility] ([facility]) Heart rate 112 /min 112 /min [facility] ([facility]) Body temperature 97.7 [degF] 97.7 [degF] [facility] ([facility]) Systolic blood pressure 137 mm[Hg] 137 mm[Hg] M [facility] ([facility]) Body weight 165.00 [lb_av] 165.00 [lb_av] [facility] T ([facility]) Body weight 74.844 kg 74.844 kg [facility] ([facility]) Body height 65 [in_i] 65 [in_i] [facility] ([facility]) 5'5" Body mass index (BMI) [Ratio] 27.5 kg/m2 27.5 k g/m2 [facility] ([facility]) Body surface area Derived from formula 1.82 m2 1.82 m2 [facility] ([facility]) Systolic blood pressure 138 mm[Hg] 138 mm[Hg] M [facility]ENT ([facility]) Diastolic blood pressure 60 mm[Hg] 60 mm[Hg] [facility] ([facility]) Heart rate 116 /min 116 /min [facility] ([facility]) Body weight 156.00 [lb_av] 156.00 [lb_av] [facility] T ([facility]) Body weight 70.762 kg 70.762 kg [facility] ([facility]) Body height 65 [in_i] 65 [in_i] [facility] ([facility]) 5'5" Body mass index (BMI) [Ratio] 26.0 kg/m2 26.0 k g/m2 MED[facility] ([facility]) Body surface area Derived from formula 1.78 m2 1.78 m2 [facility] ([facility]) Body height 168.91 cm 168.91 cm Next[facility] ([facility]) Body weight 62.596 kg 62.596 kg Next[facility] ([facility]) Systolic blood pressure 130 mm[Hg] 130 mm[Hg] N extGen ([facility]) Diastolic blood pressure 82 mm[Hg] 82 mm[Hg] Next[facility] ([facility]) Body mass index (BMI) [Ratio] 21.94 kg/m2 21.94 kg/m2 Next[facility] ([facility]) Body weight 169 [lb_av] 169 [lb_av] eCW1 ([facility]) Body weight 76.66 kg 76.66 kg eCW1 ([facility]) Body height [in_i] eCW1 ([facility]) Body mass index (BMI) [Ratio] 28.12 kg/m2 28.12 kg/m2 eCW1 ([facility]) Systolic blood pressure 124 mm[Hg] 124 mm[Hg] e CW1 ([facility]) Diastolic blood pressure 85 mm[Hg] 85 mm[Hg] eCW1 ([facility]) Patient Treatment Plan of Care Planned Activity Planned Date Details Description Data Source (s) 1 ML secukinumab 150 MG/ML Prefilled Syringe [Cosentyx ] 04/16/2020 12:00:00 AM EST [facility] ([facility]) Voltaren 1% topical gel BUCCAL ADH. PATCH 04/16/2020 12:00:[address] [facility] ([facility]) Prednisone 5 MG Oral Tablet 04/16/2020 12:00:00 AM EST [facility] ([facility]) 1 ML secukinumab 150 MG/ML Prefilled Syringe [Cosentyx ] 04/16/2020 12:00:00 AM EST [facility] ([facility]) 1 ML secukinumab 150 MG/ML Prefilled Syringe [Cosentyx ] 12/12/2019 12:00:00 AM EDT [facility] ([facility]) control pill ORAL ADH. PATCH [facility] ([facility])
[2021-01-08] MEDS ORDERED: LR 1,000 ML IV SCH ×2 (14:10→15:35)
[2021-01-08] MEDS ORDERED: LR 1,000 ML IV ONE (14:10)
[2021-01-08 14:24] LABS: HEMATOCRIT 34.6 % (36.0-47.0); HEMOGLOBIN 11.7 g/dl (12.0-15.5); MEAN CORPUSCULAR HEMOGLOBIN 30.1 pg (27.0-33.0); MEAN CORPUSCULAR HGB CONC 33.8 g/dl (32.0-36.5); MEAN CORPUSCULAR VOLUME 88.9 fl (80.0-96.0); PLATELET COUNT, AUTOMATED 328 10^3/uL (150-450); RED BLOOD COUNT 3.89 10^6/uL (4.00-5.40); WHITE BLOOD COUNT 9.8 10^3/uL (4.0-10.0)
[2021-01-08] MEDS ORDERED: OXYTOCIN 30 UNITS IN 0.9% NaCl 500ML IV BAG (J2590) As Ordered ONE (14:32)
[2021-01-08 14:51] LABS: ALT/SGPT 36 U/L (12-78); BILIRUBIN,TOTAL 0.8 MG/DL (0.2-1.0); CREATININE FOR GFR 0.85 MG/DL (0.55-1.30); GLOMERULAR FILTRATION RATE > 60.0 (>60); LDH LACTATE DEHYDROGENASE 205 U/L (84-246); URIC ACID 6.3 MG/DL (2.6-6.0)
[2021-01-08 14:52] LABS: CORD GAS ABE V -4.9; CORD GAS O2 SAT V 59.9 %; CORD GAS PCO2 V 36.6 mmHg; CORD GAS PH V 7.355 UNITS; CORD GAS PO2 V 25.1 mmHg; CORD GAS SBC V 19.7 MEQ/L; CORD GAS TCO2 V 21.1 MEQ/L
[2021-01-08] MEDS ORDERED: LIDOCAINE 1% MDV 20ML VIAL As Ordered ONE (14:59)
[2021-01-08] MEDS ORDERED: LABETALOL 100MG/20ML VIAL IV STA ×2 (15:31→16:30)
[2021-01-08] MEDS ORDERED: LACTATED RINGER'S 1000 ML IV STA (15:31)
[2021-01-08] MEDS ORDERED: ACETAMINOPHEN TAB 650MG DOSE (2X325MG) PO PRN (15:35)
[2021-01-08] MEDS ORDERED: DIBUCAINE 1% OINTMENT 30GM TOP PRN (15:35)
[2021-01-08] MEDS ORDERED: LIDOCAINE 1% MDV 20ML VIAL INFIL PRN (15:35)
[2021-01-08] MEDS ORDERED: IBUPROFEN 800 MG TAB PO PRN (15:35)
[2021-01-08] MEDS ORDERED: RHOGAM 300 MCG (1500 IU) INJ (J2790) IM SCH (15:35)
[2021-01-08] MEDS ORDERED: DOCUSATE SODIUM 100MG CAPSULE PO PRN (15:35)
[2021-01-08] MEDS ORDERED: OXYTOCIN DRIP 30 UNITS in IV 1 EA IV PRN (15:35)
[2021-01-08] MEDS ORDERED: ANUSOL HC CREAM 30GM TOP PRN (15:35)
[2021-01-08] MEDS ORDERED: METHYLERGONOVINE MALEATE 0.2 MG TAB PO PRN (15:35)
[2021-01-08] MEDS: IBUPROFEN 600MG TAB PO PRN (15:53)
--- NOTE | 2021-01-08 16:15 | DNPDOC ---
[facility] Delivery Note Delivery Note DATE OF DELIVERY: 01/08/2021 PREDELIVERY DIAGNOSIS: 37 6/7 weeks' gestation and labor. POST DELIVERY DIAGNOSIS: Delivered at 1439. PROCEDURE: Spontaneous vaginal delivery. PROVIDER: Darlene Tarango CNM and CARLY Madrigal ANESTHESIA: none. ESTIMATED BLOOD LOSS: 400 mL. FINDINGS: 6 pound 5 ounce 2860 gram female infant, Score 8/9, GBS unknown. DELIVERY SUMMARY: Bessy is a 25-year-old 1 now para 1001 was admitted to labor and delivery in active labor with SVE of 6cm and a bulging bag. AROM was performed and FSE placed. She quickly progressed to fully and pushed to a living female in the ARIAS position with restitution to LOT. The anterior shoulder was delivered with gentle downward traction and the corpus followed. The was placed on the maternal abdomen active and crying. The placenta was delivered at 1458 and hemostasis was achieved with use of IV Pitocin and misoprostol. The labia, vagina, and cervix was evaluated and a left labial abrasion was noted and a first degree perineal laceration was noted and repaired with 3.0 vicryl. All counts of instruments and sponges are correct. Mom and baby are in stable condition. She plans to breastfeed. Darlene Tarango CNM Jan 08, 2021 16:15
--- NOTE | 2021-01-08 16:33 | HPEPDOC ---
Obstetrical History & Physical General Date of Admission Jan 08, 2021 at 13:49 Primary Care Physician: Darlene Tarango CNM History of Present Illness Bessy is a 25 year old who presents to labor and delivery at 37 6/7 as confirmed by first trimester ultrasound. She established care at [facility] and her has been complicated by substance abuse, tobacco use, rheumatoid arthritis and psoriatic arthritis. She had elevated blood pressure on 12/09/2020 and failed to attend any further visits as advised. She presented to labor and delivery today stating she was unable to get to [facility] in time for delivery. Chief Complaint: Contractions, term Information Provided By: Patient Age: 25 : 1 Term: 0 Pre-term: 0 Abortions: 0 Livin Care Care: Limited Care Dating Final EDC: Jan 23, 2021 Final EDC by: 1st trimester (US) LMP: Apr 18, 2020 Antepartum Course Height (inches): 63 Pre- weight (lbs.): 156 Past Medical History Past Obstetrical History : Past Obstetrical History: Primgravida PIG CASTER History: No pertinent history, Herpes simplex virus(HSV) Past Medical History Medical History Rheumatoid Arthritis, Gastroparesis, Psoriatic Arthritis, substance abuse (Kathleen), tobacco use Surgical History: Other (kidney surgery (reimplantation of left ureter), shoulder surgery) Family History Significant Family History: Hypertension, Other Social History Marital Status: Family situation: Spouse/partner home (incarcerated) Psychosocial History: No pertinent psych hx * Smoker: current smoker Alcohol: Denies Drugs: other (Admits to use of Kathleen 1.5 weeks ago) Allergies Coded Allergies: No Known Allergies (Verified , 09/16/02) Medications Scheduled Ibuprofen (Ibuprofen) 400 Mg Tablet, 400 MG PO TID for fever Naproxen (Naproxen) 500 Mg Tab, 500 MG PO BID Ranitidine HCl (Ranitidine HCl) 150 Mg Tab, 1 TAB PO BID Sulfamethoxazole/Trimethoprim (Bactrim Ds Tablet) 1 Each Tablet, 1 TAB PO Q12H [Medical Marijuana] , ASDIRECTED PT STATES SHE TAKES A CAPSULE IN THE MORNING, AND USES A VAPE PRN, AND A SUBLINGUAL SPRAY PRN ARTHRITIS Miscellaneous Medications Secukinumab (Cosentyx Syringe) 150 Mg/1 Ml Syringe Physical Examination Physical Examination GENERAL: Alert and oriented times three. ABDOMEN: Gravid and non-tender to touch. FETUS: Is vertex (VTX) by sterile vaginal examination (SVE), fetus is vertex (VTX) by Levar. LUNGS: breathing comfortably on room air. EXTREMITIES: mild bilateral pedal edema. Laboratory Data 24H LABS Laboratory Tests 2 01/08/21 13:58: Nucleated Red Blood Cells % (auto) 0.0, Glomerular Filtration Rate > 60.0, Uric Acid 6.3H, Total Bilirubin 0.8, Aspartate Amino Transf (AST/SGOT) 39H, Alanine Aminotransferase (ALT/SGPT) 36, Lactate Dehydrogenase 205, Syphilis Serology NONREACTIVE, Rubella Immunity Screen IMMUNE 01/08/21 14:11: Coronavirus (COVID-19)(PCR) NEGATIVE 01/08/21 14:48: Cord Venous Blood pH 7.355, Cord Venous Blood PCO2 36.6, Cord Venous Blood PO2 25.1, Cord Venous Blood HCO3 20.0, Cord Venous Blood Total CO2 21.1, Cord Venous Base Excess (Actual) -4.9, Cord Venous Base Excess (Standard) 19.7, Cord Venous Blood Oxygen Saturation 59.9 CBC/BMP Laboratory Tests 01/08/21 13:58 Pertinent Laboratoy Data Blood Type: A+ RBC Antibody Screen: Negative HIV: Unknown Hepatitis B: Unknown Hepatitis C: Unknown Rapid Plasma Reagin: Nonreactive Rubella: Immune Varicella: Unknown Chlamydia/Gonorrhea: Unknown Group B Streptococcus: Unknown Cystic Fibrosis: Negative Vaginal Examination Dilation: 6 cm Effacement: 100% Station: 0 Cervical Consistency: Soft Assessment Heart Rate (FHR): 110 Variability: Minimal to moderate Decelerations: Prolonged Tocometer Contractions: Yes Frequency: regular Assessment/Plan Assessment IUP at 37 6/7, GBS unknown, hypertensive, history of substance abuse, limited care Plan Admit to labor and delivery. Diet: regular. Group B Streptococcus (GBS) unknown. Labs and intravenous (IV) per unit protocol. Anticipate normal spontaneous delivery (). C-S as appropriate. Darlene Tarango CNM Jan 08, 2021 16:32
[2021-01-08 16:36] LABS: HIV 1&2 SCREEN CENTAUR NEGATIVE (NEGATIVE)
[2021-01-08] MEDS ORDERED: MAG Sulf (L&D) 4 GM/100 ML 4 GM in IV 1 EA IV ONE ×4 (16:50)
[2021-01-08] MEDS: MAG Sulf (OBGYN) 20GM/500ML 20,000 MG in IV 1 EA IV SCH (17:45)
[2021-01-08] MEDS: LABETALOL 200 MG TAB PO SCH (18:23)
[2021-01-08 18:44] LABS: AMPHETAMINES URINE REFLEX NEGATIVE (NEGATIVE); BARBITURATES URINE REFLEX NEGATIVE (NEGATIVE); BENZODIAZEPINES URINE REFLEX NEGATIVE (NEGATIVE); CANNABINOIDS URINE REFLEX NEGATIVE (NEGATIVE); COCAINE METABOLITE URINE REFLE NEGATIVE (NEGATIVE); METHADONE URINE REFLEX NEGATIVE (NEGATIVE); OPIATES URINE REFLEX NEGATIVE (NEGATIVE); PHENCYCLIDINE URINE REFLEX NEGATIVE (NEGATIVE)
[2021-01-08 18:47] LABS: TOTAL PROTEIN,RANDOM URINE 122.6 MG/DL (0.0-12.0)
[2021-01-08 19:14] LABS: HEPATITIS C VIRUS ABY INDEX < 0.0 INDEX (<0.8)
[2021-01-08] MEDS: ACETAMINOPHEN 500 MG TAB PO PRN (19:34)
[2021-01-08 19:42] LABS: GC DNA AMPLIFICATION NEGATIVE (NEGATIVE)
[2021-01-09] VITALS (17 sets, daily range): BP systolic 113–151; BP diastolic 58–91
[2021-01-09] MEDS: MAG Sulf (OBGYN) 20GM/500ML 20,000 MG in IV 1 EA IV SCH ×2 (03:12→12:46)
[2021-01-09] MEDS: LR 1,000 ML IV SCH ×2 (03:12→09:16)
[2021-01-09] MEDS: ACETAMINOPHEN 500 MG TAB PO PRN ×3 (03:53→20:57)
--- NOTE | 2021-01-09 07:29 | IPNPDOC ---
Progress Note Date of Service: Jan 09, 2021 Day#: 1 Progress Note SUBJECT: Doing well without complaints. Ambulating, voiding and pain is well- controlled. Reports minimal lochia. Denies headache visual changes or abdominal pain. OBJECTIVE: VITAL SIGNS: Within normal limits, afebrile. Alert and oriented times three. Abdomen: Fundus firm at U-2. Soft, NTTP. Ext: neg calf tenderness. ASSESSMENT: day #1 status post . Recovering in stable condition. Preeclampsiacurrently stable without disease progression PLAN: 1. Plan to discontinue magnesium sulfate 2. Continue routine care Nicky Guthrie MD VS, I&O, 24H, Fishbone Vital Signs/I&O Vital Signs Date Time Temp Pulse Resp B/P (MAP) Pulse Ox O2 Delivery O2 Flow Rate FiO2 01/09/21 07:00 86 15 114/61 (78) 99 Room Air 01/09/21 06:00 98.2 I&O- Last 24 Hours up to 6 AM 01/09/21 05:59 Intake Total 2450 ml Output Total 3300 ml Balance -850 ml Laboratory Data 24H LABS Laboratory Tests 2 01/08/21 13:58: Nucleated Red Blood Cells % (auto) 0.0, Glomerular Filtration Rate > 60.0, Uric Acid 6.3H, Total Bilirubin 0.8, Aspartate Amino Transf (AST/SGOT) 39H, Alanine Aminotransferase (ALT/SGPT) 36, Lactate Dehydrogenase 205, Syphilis Serology NONREACTIVE, Hepatitis B Surface Antigen NEGATIVEL, Hepatitis C Antibody Index < 0.0, HIV Antigen/Antibody Combo Qual NEGATIVE, Rubella Immunity Screen IMMUNE 01/08/21 14:11: Coronavirus (COVID-19)(PCR) NEGATIVE 01/08/21 14:48: Cord Venous Blood pH 7.355, Cord Venous Blood PCO2 36.6, Cord Venous Blood PO2 25.1, Cord Venous Blood HCO3 20.0, Cord Venous Blood Total CO2 21.1, Cord Venous Base Excess (Actual) -4.9, Cord Venous Base Excess (Standard) 19.7, Cord Venous Blood Oxygen Saturation 59.9 01/08/21 17:26: Serology Scanned Report Hepatitis B Testing 01/08/21 17:50: Urine Random Creatinine 105.0, Urine Random Total Protein 122.6H, Urine Opiates Screen NEGATIVE, Urine Methadone Screen NEGATIVE, Urine Barbiturates Screen NEGATIVE, Urine Phencyclidine Screen NEGATIVE, Urine Amphetamines Screen NEGATIVE, Urine Benzodiazepines Screen NEGATIVE, Urine Cocaine Metabolite Screen NEGATIVE, Urine Cannabinoids Screen NEGATIVE, Chlamydia trachomatis DNA (ARI) NEGATIVE, Neisseria gonorrhoeae DNA (ARI) NEGATIVE, Trichomonas vaginalis (PCR) NOT DETECTED CBC/BMP Laboratory Tests 01/08/21 13:58 NICKY GUTHRIE MD. Jan 09, 2021 07:29
[2021-01-09] MEDS: IBUPROFEN 600MG TAB PO PRN (09:15)
[2021-01-09] MEDS: LABETALOL 200 MG TAB PO SCH ×2 (09:16→20:56)
[2021-01-09] MEDS: PRENATAL VITAMINS CHEWABLE TABLET PO SCH (09:16)
[2021-01-10 02:00] VITALS: BP 129/64
[2021-01-10 05:12] VITALS: BP 131/63
[2021-01-10 08:40] VITALS: BP 139/78
[2021-01-10] MEDS: PRENATAL VITAMINS CHEWABLE TABLET PO SCH (08:40)
[2021-01-10] MEDS: LABETALOL 200 MG TAB PO SCH (08:40)
[2021-01-10] MEDS: ACETAMINOPHEN 500 MG TAB PO PRN (08:42)
[2021-01-10 10:01] VITALS: BP 123/60
[2021-01-10] MEDS ORDERED: LABE20TAB PO (14:54)
== END 2021-01-10 13:14 | disposition home or self-care (01) | DRG 560 ==
LOC: M LDO 13:34 → M LDI 13:49 → M OBS 01-09 14:30 → M LDI 01-09 14:30 → UNDODISIN 01-10 13:14
PROVIDERS: ADMIT Advanced Practice Midwife; ATTEND Advanced Practice Midwife
PROC: 10E0XZZ Delivery of Products of Conception, External Approach (ICD-10-PCS; principal; 2021-01-08)
PROC: 0HQ9XZZ Repair Perineum Skin, External Approach (ICD-10-PCS; 2021-01-08)
PROC: 10907ZC Drainage of Amniotic Fluid, Therapeutic from Products of Conception, Via Natural or Artificial Opening (ICD-10-PCS; 2021-01-08)
DX: O13.4 Gestational [pregnancy-induced] hypertension without significant proteinuria, complicating childbirth (principal); O99.324 Drug use complicating childbirth; L40.50 Arthropathic psoriasis, unspecified; O99.892 Other specified diseases and conditions complicating childbirth; M06.9 Rheumatoid arthritis, unspecified; O99.72 Diseases of the skin and subcutaneous tissue complicating childbirth; O99.334 Smoking (tobacco) complicating childbirth; F17.210 Nicotine dependence, cigarettes, uncomplicated; F11.10 Opioid abuse, uncomplicated; Z20.822 Contact with and (suspected) exposure to COVID-19; O70.0 First degree perineal laceration during delivery; Z37.0 Single live birth

== ENCOUNTER → 2021-08-12 | Outpatient (CLI) | payer MEDICAID ==
[~2021-08-12] MED LIST changes: +LABE20TAB PO
== END ==
LOC: M WHC 14:30
PROVIDERS: ATTEND Obstetrics & Gynecology
DX: Z36.3 Encounter for antenatal screening for malformations (principal); Z3A.19 19 weeks gestation of pregnancy

== ENCOUNTER → 2021-09-21 | Outpatient (CLI) | payer MEDICAID ==
[2021-09-21 13:23] LABS: BASO % 0.3 % (0.0-1.0); EOS # 0.4 10^3/uL (0.0-0.5); EOS % 4.1 % (0.0-3.0); HEMATOCRIT 33.1 % (36.0-47.0); HEMOGLOBIN 11.1 g/dl (12.0-15.5); LYMPH # 2.6 10^3/uL (1.5-5.0); LYMPH % 26.3 % (24.0-44.0); MEAN CORPUSCULAR HEMOGLOBIN 31.8 pg (27.0-33.0); MEAN CORPUSCULAR HGB CONC 33.5 g/dl (32.0-36.5); MEAN CORPUSCULAR VOLUME 94.8 fl (80.0-96.0); MONO # 0.7 10^3/uL (0.0-0.8); MONO % 6.8 % (2.0-8.0); NEUTROPHILS % 61.8 % (36.0-66.0); PLATELET COUNT, AUTOMATED 305 10^3/uL (150-450); RED BLOOD COUNT 3.49 10^6/uL (4.00-5.40); WHITE BLOOD COUNT 9.7 10^3/uL (4.0-10.0)
[2021-09-21 14:50] LABS: GC DNA AMPLIFICATION NEGATIVE (NEGATIVE)
[2021-09-21 15:12] LABS: HIV 1&2 SCREEN CENTAUR NEGATIVE (NEGATIVE)
[2021-09-21 15:13] LABS: HEPATITIS C VIRUS ABY INDEX > 11.0 INDEX (<0.8)
== END ==
LOC: M PLALAB 10:21
PROVIDERS: ATTEND Obstetrics & Gynecology
DX: Z36.9 Encounter for antenatal screening, unspecified (principal)

== ENCOUNTER → 2021-09-21 | Outpatient (CLI) | payer MEDICAID ==
[2021-09-22 08:44] LABS: HEMATOCRIT 33.8 % (36.0-47.0); MEAN CORPUSCULAR HEMOGLOBIN 31.4 pg (27.0-33.0); MEAN CORPUSCULAR HGB CONC 32.5 g/dl (32.0-36.5); MEAN CORPUSCULAR VOLUME 96.6 fl (80.0-96.0); PLATELET COUNT, AUTOMATED 305 10^3/uL (150-450)
== END ==
LOC: M PLALAB 10:18
PROVIDERS: ATTEND Specialist
DX: Z36.89 Encounter for other specified antenatal screening (principal)

== ENCOUNTER → 2021-10-13 | Outpatient (CLI) | payer MEDICAID | LOC: M WHC 13:54 | PROVIDERS: ATTEND Specialist | DX: Z36.2 Encounter for other antenatal screening follow-up (principal); Z3A.28 28 weeks gestation of pregnancy ==

== ENCOUNTER → 2021-11-24 | Outpatient (REF) | payer MEDICAID | LOC: M PLALAB 16:37 | PROVIDERS: ATTEND Obstetrics & Gynecology | DX: Z34.83 Encounter for supervision of other normal pregnancy, third trimester (principal); Z53.8 Procedure and treatment not carried out for other reasons ==

== ENCOUNTER → 2021-12-10 | Outpatient (CLI) | payer MEDICAID, OTHER ==
[~2021-12-10] MED LIST changes: +ACET32TAB PO; +CRAN450T4 PO; +PRENTAB9 PO; +PROB250C PO; +TUMS750C5 PO
[2021-12-10 13:32] LABS: HEMATOCRIT 34.5 % (36.0-47.0); HEMOGLOBIN 11.1 g/dl (12.0-15.5); MEAN CORPUSCULAR HEMOGLOBIN 31.1 pg (27.0-33.0); MEAN CORPUSCULAR HGB CONC 32.2 g/dl (32.0-36.5); MEAN CORPUSCULAR VOLUME 96.6 fl (80.0-96.0); PLATELET COUNT, AUTOMATED 299 10^3/uL (150-450); RED BLOOD COUNT 3.57 10^6/uL (4.00-5.40); WHITE BLOOD COUNT 12.5 10^3/uL (4.0-10.0)
[2021-12-10 14:08] LABS: ALT/SGPT 23 U/L (12-78); BILIRUBIN,TOTAL 0.4 MG/DL (0.2-1.0); CREATININE FOR GFR 0.52 MG/DL (0.55-1.30); GLOMERULAR FILTRATION RATE > 60.0 (>60); LDH LACTATE DEHYDROGENASE 133 U/L (84-246)
[2021-12-10 15:16] LABS: TOTAL PROTEIN,RANDOM URINE 40.2 MG/DL (0.0-12.0)
== END ==
LOC: M PLALAB 12:05
PROVIDERS: ATTEND Advanced Practice Midwife
DX: O13.9 Gestational [pregnancy-induced] hypertension without significant proteinuria, unspecified trimester (principal)

== ENCOUNTER 2021-12-13 14:09 | Inpatient (IN) | payer OTHER, MEDICAID ==
[2021-12-13] VITALS (12 sets, daily range): BP systolic 121–148; BP diastolic 59–79
[~2021-12-13] VITALS: Ht 165.1 cm; Wt 94.1 kg
[~2021-12-13 14:09] MED LIST changes: -ACET32TAB PO; -CRAN450T4 PO; -PRENTAB9 PO; -PROB250C PO; -TUMS750C5 PO
[2021-12-13] MEDS ORDERED: PRENTAB9 PO (14:37)
[2021-12-13] MEDS ORDERED: PROB250C PO (14:37)
[2021-12-13] MEDS ORDERED: TUMS750C5 PO (14:37)
[2021-12-13] MEDS ORDERED: ACET32TAB PO (14:40)
[2021-12-13] MEDS ORDERED: HOME MED LIST COMPLETE! XX SCH (14:40)
[2021-12-13] MEDS ORDERED: CRAN450T4 PO (14:40)
[2021-12-13] MEDS ORDERED: LACTATED RINGER'S 1000 ML IV STA (16:34)
[2021-12-13] MEDS ORDERED: METHYLERGONOVINE MALEATE 0.2 MG/ML VIAL (J2210) IM PRN (16:35)
[2021-12-13] MEDS ORDERED: TRANEXAMIC ACID INJection 1,000 MG in NS 100 ML IV PRN (16:35)
[2021-12-13] MEDS ORDERED: CARBOPROST TROMETHAMINE 250 MCG/ML AMP IM PRN (16:35)
[2021-12-13] MEDS ORDERED: OXYTOCIN INJ 10 UNITS/ML VIAL (J2590) IM PRN (16:35)
[2021-12-13] MEDS ORDERED: OXYTOCIN DRIP 30 UNITS in IV 1 EA IV PRN (16:35)
[2021-12-13] MEDS ORDERED: LIDOCAINE 1% MDV 20ML VIAL INFIL PRN (16:35)
[2021-12-13 17:37] LABS: HEMATOCRIT 31.2 % (36.0-47.0); HEMOGLOBIN 10.4 g/dl (12.0-15.5); MEAN CORPUSCULAR HEMOGLOBIN 31.8 pg (27.0-33.0); MEAN CORPUSCULAR HGB CONC 33.3 g/dl (32.0-36.5); MEAN CORPUSCULAR VOLUME 95.4 fl (80.0-96.0); PLATELET COUNT, AUTOMATED 272 10^3/uL (150-450); RED BLOOD COUNT 3.27 10^6/uL (4.00-5.40); WHITE BLOOD COUNT 12.9 10^3/uL (4.0-10.0)
[2021-12-13] MEDS: miSOPROStol 50MCG 1/2 TABLET PO SCH ×2 (17:53→21:58)
[2021-12-13 18:24] LABS: ALT/SGPT 20 U/L (12-78); BILIRUBIN,TOTAL 0.4 MG/DL (0.2-1.0); CREATININE FOR GFR 0.48 MG/DL (0.55-1.30); GLOMERULAR FILTRATION RATE > 60.0 (>60); LDH LACTATE DEHYDROGENASE 171 U/L (84-246); URIC ACID 3.9 MG/DL (2.6-6.0)
[2021-12-13 20:07] LABS: AMPHETAMINES URINE REFLEX NEGATIVE (NEGATIVE); BARBITURATES URINE REFLEX NEGATIVE (NEGATIVE); BENZODIAZEPINES URINE REFLEX NEGATIVE (NEGATIVE); COCAINE METABOLITE URINE REFLE NEGATIVE (NEGATIVE); METHADONE URINE REFLEX NEGATIVE (NEGATIVE); OPIATES URINE REFLEX NEGATIVE (NEGATIVE); PHENCYCLIDINE URINE REFLEX NEGATIVE (NEGATIVE)
[2021-12-13 20:10] LABS: CANNABINOIDS URINE REFLEX PENDING CONFIRMATION (NEGATIVE)
[2021-12-13 20:27] LABS: TOTAL PROTEIN,RANDOM URINE 26.8 MG/DL (0.0-12.0)
[2021-12-14] VITALS (56 sets, daily range): BP systolic 103–185; BP diastolic 56–111
[2021-12-14] MEDS: miSOPROStol 50MCG 1/2 TABLET PO SCH ×2 (02:03→06:08)
[2021-12-14] MEDS ORDERED: OXYTOCIN DRIP 30 UNITS in IV 1 EA IV SCH (10:15)
[2021-12-14] MEDS: LR 1,000 ML IV SCH ×2 (11:00→18:36)
[2021-12-14] MEDS ORDERED: LABETALOL 100MG/20ML VIAL IV STA (12:08)
[2021-12-14] MEDS ORDERED: diphenhydrAMINE 50MG/ML VIAL (J1200) IV PRN (16:00)
[2021-12-14] MEDS ORDERED: NALOXONE INJ 0.4MG/1ML VIAL (J2310 PER 1MG) IV PRN (16:00)
[2021-12-14] MEDS ORDERED: LR 500 ML IV PRN (16:00)
[2021-12-14] MEDS ORDERED: ePHEDrine SULFATE 25 MG/5 ML(5MG/ML) SYRINGE IVP PRN (16:00)
[2021-12-14] MEDS ORDERED: EPIDURAL/PCA KEYS XX PRN (16:00)
[2021-12-14] MEDS: FENTANYL/ROPIVACAINE/NACL BAG 100 ML EPIDURAL SCH (16:43)
[2021-12-14] MEDS: ONDANSETRON 4MG 2ML VIAL IV PRN (19:06)
[2021-12-15] VITALS (11 sets, daily range): BP systolic 126–147; BP diastolic 69–88
[2021-12-15] MEDS: FENTANYL/ROPIVACAINE/NACL BAG 100 ML EPIDURAL SCH (00:20)
[2021-12-15] MEDS: ONDANSETRON 4MG 2ML VIAL IV PRN (00:30)
[2021-12-15] MEDS ORDERED: RHOGAM 300 MCG (1500 IU) INJ (J2790) IM SCH (01:15)
[2021-12-15] MEDS ORDERED: OXYTOCIN DRIP 30 UNITS in IV 1 EA IV SCH (01:15)
[2021-12-15] MEDS ORDERED: MOM 30ML SUSPENSION UDC PO PRN (01:15)
[2021-12-15] MEDS ORDERED: METHYLERGONOVINE MALEATE 0.2 MG TAB PO PRN (01:15)
[2021-12-15] MEDS ORDERED: ANUSOL HC CREAM 30GM TOP PRN (01:15)
[2021-12-15] MEDS ORDERED: DIBUCAINE 1% OINTMENT 30GM TOP PRN (01:15)
[2021-12-15] MEDS ORDERED: ACETAMINOPHEN TAB 650MG DOSE (2X325MG) PO PRN (01:15)
[2021-12-15] MEDS ORDERED: IBUPROFEN 600MG TAB PO PRN (01:15)
[2021-12-15] MEDS ORDERED: DOCUSATE SODIUM 100MG CAPSULE PO PRN (01:15)
[2021-12-15] MEDS: ACETAMINOPHEN 500 MG TAB PO PRN ×2 (05:47→12:14)
[2021-12-15] MEDS: IBUPROFEN 800 MG TAB PO PRN ×2 (08:36→21:48)
[2021-12-15] MEDS: PRENATAL VITAMINS CHEWABLE TABLET PO SCH (08:36)
[2021-12-16 06:00] VITALS: BP 142/65
[2021-12-16] MEDS: IBUPROFEN 800 MG TAB PO PRN (06:26)
[2021-12-16] MEDS: PRENATAL VITAMINS CHEWABLE TABLET PO SCH (08:28)
[2021-12-16] MEDS ORDERED: IBUP-1022 PO (12:01)
[2021-12-16 23:11] LABS: Cannabinoid Positive (.); Carboxy THC Conf, MS, UR 320 ng/mL (Cutoff=10)
[2021-12-17] MEDS ORDERED: MEASLES,MUMPS,RUBELLA VACCINE INJ (MMR-II) (90707) SC.IMMUN ONE (09:00)
== END 2021-12-16 12:20 | disposition home or self-care (01) | DRG 560 ==
LOC: M LDO 14:09 → M LDI 16:35 → M OBS 12-15 02:48
PROVIDERS: ADMIT Advanced Practice Midwife; ATTEND Obstetrics & Gynecology
PROC: 3E0P7GC Introduction of Other Therapeutic Substance into Female Reproductive, Via Natural or Artificial Opening (ICD-10-PCS; 2021-12-13)
PROC: 10E0XZZ Delivery of Products of Conception, External Approach (ICD-10-PCS; principal; 2021-12-15)
PROC: 0HQ9XZZ Repair Perineum Skin, External Approach (ICD-10-PCS; 2021-12-15)
DX: O13.4 Gestational [pregnancy-induced] hypertension without significant proteinuria, complicating childbirth (principal); O99.334 Smoking (tobacco) complicating childbirth; F17.200 Nicotine dependence, unspecified, uncomplicated; Z3A.37 37 weeks gestation of pregnancy; Z37.0 Single live birth; O69.81X0 Labor and delivery complicated by cord around neck, without compression, not applicable or unspecified; O70.0 First degree perineal laceration during delivery

== ENCOUNTER 2021-12-26 16:51 | Emergency (ER) | payer MEDICARE, MEDICAID ==
[~2021-12-26] VITALS: Ht 165.1 cm; Wt 89.4 kg
[2021-12-26 16:51] VITALS: BP 131/67
[~2021-12-26 16:51] MED LIST changes: +ACET32TAB PO; +CRAN450T4 PO; +IBUP-1022 PO; +PRENTAB9 PO; +PROB250C PO; +TUMS750C5 PO
[2021-12-26] MEDS ORDERED: IBUP-1114 PO (17:01)
[2021-12-26 18:43] LABS: BASO # 0.1 10^3/uL (0.0-0.2); BASO % 0.4 % (0.0-1.0); EOS # 0.6 10^3/uL (0.0-0.5); EOS % 4.1 % (0.0-3.0); HEMATOCRIT 35.7 % (36.0-47.0); HEMOGLOBIN 11.6 g/dl (12.0-15.5); MEAN CORPUSCULAR HEMOGLOBIN 31.5 pg (27.0-33.0); MEAN CORPUSCULAR HGB CONC 32.5 g/dl (32.0-36.5); MONO # 0.8 10^3/uL (0.0-0.8); MONO % 5.6 % (2.0-8.0); NEUTROPHILS # 9.6 10^3/uL (1.5-8.5); NEUTROPHILS % 68.4 % (36.0-66.0); PLATELET COUNT, AUTOMATED 357 10^3/uL (150-450); RED BLOOD COUNT 3.68 10^6/uL (4.00-5.40)
[2021-12-26 19:40] LABS: HCG, SERUM QUALITATIVE POSITIVE (NEGATIVE)
[2021-12-26 19:58] LABS: ALBUMIN 3.2 GM/DL (3.2-5.2); ALT/SGPT 23 U/L (12-78); BILIRUBIN,DIRECT 0.1 MG/DL (0.0-0.2); BILIRUBIN,TOTAL 0.6 MG/DL (0.2-1.0); BLOOD UREA NITROGEN 23 MG/DL (7-18); CALCIUM LEVEL 8.7 MG/DL (8.5-10.1); CARBON DIOXIDE LEVEL 23 MEQ/L (21-32); CHLORIDE LEVEL 110 MEQ/L (98-107); CREATININE FOR GFR 0.82 MG/DL (0.55-1.30); GLOMERULAR FILTRATION RATE > 60.0 (>60); GLUCOSE, FASTING 92 MG/DL (70-100); LIPASE 114 U/L (73-393); POTASSIUM SERUM 4.3 MEQ/L (3.5-5.1); SODIUM LEVEL 140 MEQ/L (136-145); TOTAL PROTEIN 7.5 GM/DL (6.4-8.2)
[2021-12-26] MEDS ORDERED: ISOVUE-370 76% 100ML VIAL As Ordered ONE (20:14)
== END 2021-12-26 20:39 | disposition left against medical advice (07) ==
LOC: M ED 16:51
DX: R10.9 Unspecified abdominal pain (principal); F17.200 Nicotine dependence, unspecified, uncomplicated; K44.9 Diaphragmatic hernia without obstruction or gangrene; F12.10 Cannabis abuse, uncomplicated; Z79.899 Other long term (current) drug therapy; Z53.21 Procedure and treatment not carried out due to patient leaving prior to being seen by health care provider

== ENCOUNTER 2021-12-27 12:37 | Emergency (ER) | payer MEDICAID, MEDICARE, OTHER ==
[~2021-12-27] VITALS: Ht 165.1 cm; Wt 88.1 kg
[2021-12-27 12:39] VITALS: BP 128/81
[2021-12-27] MEDS ORDERED: ONDANSETRON 4MG ORAL DISINTEGRATING TAB PO ONE (16:40)
[2021-12-27 18:03] LABS: APPEARANCE, URINE MANUAL CLEAR (CLEAR); COLOR, URINE MANUAL YELLOW (YELLOW)
[2021-12-27 18:04] LABS: BILIRUBIN, URINE MANUAL NEGATIVE (NEGATIVE); BLOOD URINE MANUAL POSITIVE (NEGATIVE); GLUCOSE, URINE (UA) MANUAL NEGATIVE (NEGATIVE); KETONE, URINE MANUAL NEGATIVE (NEGATIVE); LEUKOCYTE ESTERASE, URINE MAN POSITIVE (NEGATIVE); NITRITE, URINE MANUAL NEGATIVE (NEGATIVE); PROTEIN, URINE MANUAL NEGATIVE (NEGATIVE); UROBILINOGEN, URINE MANUAL NORMAL (NORMAL)
[2021-12-27 18:12] LABS: BASO # 0.1 10^3/uL (0.0-0.2); BASO % 0.6 % (0.0-1.0); EOS # 0.6 10^3/uL (0.0-0.5); EOS % 5.7 % (0.0-3.0); HEMATOCRIT 37.4 % (36.0-47.0); HEMOGLOBIN 11.7 g/dl (12.0-15.5); LYMPH # 2.9 10^3/uL (1.5-5.0); LYMPH % 27.1 % (24.0-44.0); MEAN CORPUSCULAR HGB CONC 31.3 g/dl (32.0-36.5); MEAN CORPUSCULAR VOLUME 98.9 fl (80.0-96.0); MONO # 0.7 10^3/uL (0.0-0.8); MONO % 6.7 % (2.0-8.0); NEUTROPHILS # 6.4 10^3/uL (1.5-8.5); NEUTROPHILS % 59.4 % (36.0-66.0); PLATELET COUNT, AUTOMATED 364 10^3/uL (150-450); RED BLOOD COUNT 3.78 10^6/uL (4.00-5.40); WHITE BLOOD COUNT 10.7 10^3/uL (4.0-10.0)
[2021-12-27 18:27] LABS: BACTERIA, URINE NONE SEEN; HYALINE CAST, URINE NONE SEEN /lpf (0-1); MUCUS, URINE SMALL AMOUNT (NEGATIVE); RBC, URINE 15-20 /hpf (0-3); SQUAMOUS EPITHELIAL CELL URINE SMALL AMOUNT /hpf (SMALL AMT); WBC, URINE 15-20 /hpf (0-3)
[2021-12-27 18:37] LABS: BLOOD UREA NITROGEN 19 MG/DL (7-18); CARBON DIOXIDE LEVEL 22 MEQ/L (21-32); CHLORIDE LEVEL 109 MEQ/L (98-107); GLOMERULAR FILTRATION RATE > 60.0 (>60); GLUCOSE, FASTING 92 MG/DL (70-100); SODIUM LEVEL 138 MEQ/L (136-145)
== END 2021-12-27 19:36 | disposition home or self-care (01) ==
LOC: M ED 12:37
DX: R10.9 Unspecified abdominal pain (principal); Z79.810 Long term (current) use of selective estrogen receptor modulators (SERMs); Z79.899 Other long term (current) drug therapy

== ENCOUNTER 2022-04-15 13:08 | Emergency (ER) | payer OTHER ==
[~2022-04-15] VITALS: Ht 165.1 cm; Wt 88.6 kg
[2022-04-15] MEDS ORDERED: IBUP-1022 PO (15:08)
[2022-04-15 15:15] VITALS: BP 125/74
== END 2022-04-15 15:42 | disposition home or self-care (01) ==
LOC: M ED 13:08
DX: S92.352A Displaced fracture of fifth metatarsal bone, left foot, initial encounter for closed fracture (principal); W01.0XXA Fall on same level from slipping, tripping and stumbling without subsequent striking against object, initial encounter; J45.909 Unspecified asthma, uncomplicated; F32.A Depression, unspecified; F41.9 Anxiety disorder, unspecified; F17.200 Nicotine dependence, unspecified, uncomplicated; F12.10 Cannabis abuse, uncomplicated; F10.10 Alcohol abuse, uncomplicated; Z79.1 Long term (current) use of non-steroidal anti-inflammatories (NSAID); Z79.810 Long term (current) use of selective estrogen receptor modulators (SERMs); Z79.899 Other long term (current) drug therapy

== ENCOUNTER → 2022-06-24 | Outpatient (REF) | payer OTHER | LOC: M SFHCWAGY 17:12 | PROVIDERS: ATTEND Obstetrics & Gynecology | DX: Z12.4 Encounter for screening for malignant neoplasm of cervix (principal) ==

== ENCOUNTER → 2023-07-06 | Outpatient (REF) | payer OTHER ==
[~2023-07-06] MED LIST changes: +ETON1VAG7 PV; -NUVAMIS2 PV
== END ==
LOC: M LAB REF 16:30
PROVIDERS: ATTEND Family Medicine Addiction Medicine
DX: Z01.84 Encounter for antibody response examination (principal)

== ENCOUNTER → 2023-08-24 | Outpatient (REF) | payer OTHER | LOC: M LAB REF 16:23 | PROVIDERS: ATTEND Family Medicine Addiction Medicine | DX: J02.9 Acute pharyngitis, unspecified (principal) ==

== ENCOUNTER → 2023-10-25 | Outpatient (REF) | payer OTHER | LOC: M PLALAB 14:34 | PROVIDERS: ATTEND Obstetrics & Gynecology | DX: N76.0 Acute vaginitis (principal) ==

== ENCOUNTER → 2024-11-22 | Outpatient (REF) | payer OTHER ==
[~2024-11-22] MED LIST changes: -IBUP-1022 PO; +IBUP600T42 PO
[2024-11-26 14:37] LABS: HPV APTIMA Not Detected (Not Detected)
== END ==
LOC: M SFHCWAGY 13:19
PROVIDERS: ATTEND Obstetrics & Gynecology
DX: Z12.4 Encounter for screening for malignant neoplasm of cervix (principal); R87.612 Low grade squamous intraepithelial lesion on cytologic smear of cervix (LGSIL)

== ENCOUNTER 2024-12-30 11:28 | Day surgery (SDC) | payer OTHER ==
[~2024-12-30] VITALS: Ht 165.1 cm; Wt 77.7 kg
[~2024-12-30 11:28] MED LIST changes: +ACETAMINOPHEN 1000MG/100ML IV BAG As Ordered ONE; +KETOROLAC 30 MG/ML 1 ML VIAL As Ordered ONE; +LIDOCAINE 2% 100 MG/5 ML SDV (FOR ANES.) As Ordered ONE; +Mirena; +ONDANSETRON 4MG 2ML VIAL As Ordered ONE; +THERTAB52 PO; +dexAMETHasone 4 MG/ML 1 ML VIAL As Ordered ONE
[2024-12-30] MEDS ORDERED: LR 1,000 ML IV SCH (12:15)
[2024-12-30] MEDS: IPRATROPIUM 0.5 MG/ALBUTEROL 2.5 MG INH SOL UD 3 ML NEB ONE (13:15)
[2024-12-30] MEDS ORDERED: MIDAZOLAM INJ 2 MG/2 ML VIAL As Ordered ONE (14:08)
[2024-12-30] MEDS ORDERED: ONDANSETRON 4MG 2ML VIAL IV PRN (15:00)
[2024-12-30] MEDS ORDERED: MORPHINE 4 MG/ML 1 ML VIAL IV PRN (15:00)
[2024-12-30 16:05] VITALS: BP 113/62; TEMP 97.6; O2SAT 100
== END 2024-12-30 16:09 | disposition home or self-care (01) ==
LOC: M SDC 11:28
PROVIDERS: ATTEND Orthopaedic Surgery Hand Surgery
DX: G56.01 Carpal tunnel syndrome, right upper limb (principal); F17.210 Nicotine dependence, cigarettes, uncomplicated
CPT/HCPCS: 29848; 81025; J0131; J0665; J1100; J1885; J2250; J2405; J3010

== ENCOUNTER → 2025-01-14 | Outpatient (REF) | payer OTHER ==
[~2025-01-14] MED LIST changes: -ACETAMINOPHEN 1000MG/100ML IV BAG As Ordered ONE; -KETOROLAC 30 MG/ML 1 ML VIAL As Ordered ONE; -LIDOCAINE 2% 100 MG/5 ML SDV (FOR ANES.) As Ordered ONE; -ONDANSETRON 4MG 2ML VIAL As Ordered ONE; -dexAMETHasone 4 MG/ML 1 ML VIAL As Ordered ONE
== END ==
LOC: M PLALAB 15:33
PROVIDERS: ATTEND Obstetrics & Gynecology
DX: R87.612 Low grade squamous intraepithelial lesion on cytologic smear of cervix (LGSIL) (principal)

== ENCOUNTER → 2025-02-19 | Outpatient (REF) | payer OTHER ==
[2025-02-19 18:28] LABS: RHEUMATOID FACTOR QUANT < 3.5 IU/ML (<14)
[2025-02-19 18:33] LABS: ALT/SGPT 24 U/L (7.0-40); AST/SGOT 18 U/L (<34); BASO # 0.0 10^3/uL (0.0-0.2); BASO % 0.6 % (0.0-1.0); C REACTIVE PROTEIN QUANTITATIV < 0.50 MG/DL (<1.0); CALCIUM LEVEL 9.1 MG/DL (8.5-10.1); CARBON DIOXIDE LEVEL 28 MMOL/L (20-31); CHLORIDE LEVEL 105 MMOL/L (98-107); CREATININE FOR GFR 0.72 MG/DL (0.55-1.30); EOS # 0.5 10^3/uL (0.0-0.5); EOS % 6.8 % (0.0-3.0); GLOMERULAR FILTRATION RATE > 90.0 (>60); LYMPH # 2.3 10^3/uL (1.5-5.0); LYMPH % 34.4 % (24.0-44.0); MONO # 0.6 10^3/uL (0.0-0.8); MONO % 9.1 % (2.0-8.0); NEUTROPHILS # 3.3 10^3/uL (1.5-8.5); NEUTROPHILS % 49.0 % (36.0-66.0); PLATELET COUNT, AUTOMATED 260 10^3/uL (150-450); POTASSIUM SERUM 4.7 MMOL/L (3.5-5.1); SODIUM LEVEL 141 MMOL/L (136-145)
[2025-02-24 13:57] LABS: SSA SJOGRENS A <1.0 NEG AI (<1.0 NEG); SSB SJOGRENS B <1.0 NEG AI (<1.0 NEG)
== END ==
LOC: M LAB REF 17:20
PROVIDERS: ATTEND Family Medicine Addiction Medicine
DX: M06.9 Rheumatoid arthritis, unspecified (principal)